=== PATIENT | male | born 2000 | race African-American/Black ===

== ENCOUNTER 2024-04-28 15:50 | Emergency (ER) | payer BC, SELFPAY ==
--- NOTE | 2024-04-28 15:59 | ED.GENADULT ---
HPI - General Adult General Chief complaint: Extremity Injury, Lower Stated complaint: ankle swelling Time Seen by Provider: 04/28/24 15:59 Source: patient Mode of arrival: ambulatory Limitations: no limitations History of Present Illness HPI narrative: 24-year-old male patient presents to [facility] with complaints of bilateral ankle edema for the last 2-3 days. Patient states he has had no injury. Patient states he has been trying to elevate the lower extremities as well as icing them. Patient is able to ambulate without difficulty. Patient denies any chest pain or shortness of breath at this time. Related Data Home Medications ?Medication ?Instructions ?Recorded ?Confirmed ?Last Taken ?Type atomoxetine 18 mg capsule mg PO 04/28/24 Unknown History buprenorphine 300 mg/1.5 mL mg subcut 04/28/24 Unknown History solution,exten.rel.subcutaneous syringe (Sublocade) buspirone 30 mg tablet mg 04/28/24 Unknown History fluoxetine 20 mg capsule mg 04/28/24 Unknown History hydroxyzine HCl 50 mg tablet mg 04/28/24 Unknown History olanzapine 5 mg tablet mg 04/28/24 Unknown History omeprazole 40 mg capsule,delayed mg 04/28/24 Unknown History release ondansetron HCl 4 mg tablet mg 04/28/24 Unknown History propranolol 10 mg tablet mg 04/28/24 Unknown History Allergies Allergy/AdvReac Type Severity Reaction Status Date / Time No Known Allergies Allergy Verified 04/28/24 16:31 Review of Systems Review of Systems: CONSTITUTIONAL: Denies fever, chills, or sweats. EYES: Denies visual changes, redness, or discharge. ENT: Denies rhinorrhea, congestion, sore throat, or otalgia. CARDIOVASCULAR: Denies chest pain, palpitations, or edema. RESPIRATORY: Denies cough or dyspnea. GASTROINTESTINAL: Denies abdominal pain, nausea, vomiting, or diarrhea. GENITOURINARY: Denies dysuria or hematuria. SKIN: Denies rash or itching. MUSCULOSKELETAL: Denies back pain, joint pain, or myalgia. Positive bilateral ankle and foot edema NEUROLOGIC: Denies headache, numbness, or weakness. PSYCHIATRIC: Denies anxiety or depression. [facility] Past Medical History Medical History History of psychiatric care Comments At the time of my signature I agree with nursing past medical history, surgical, social, and family history. There is no relevant family history pertinent to the presenting complaint. Exam Narrative: GENERAL: Well-appearing, well-nourished, and in no acute distress. HEAD: Normocephalic, atraumatic. EYES: PERRLA and EOMI. ENT: Nares clear, no rhinorrhea or epistaxis. Mucous membranes moist. NECK: Supple. No lymphadenopathy CHEST: Clear to auscultation. No respiratory distress. HEART: Regular rate and rhythm. No murmur heard. Normal peripheral pulses. ABDOMEN: Soft, nontender, nondistended, normal active bowel sounds. EXTREMITIES: Normal range of motion. patient has bilateral 2+ pitting edema noted. Pulses are 2+. There is edema noted that extends up to the knees. Patient does not appear to be overweight. SKIN: Warm, dry, no rash. NEURO: No focal deficits. Alert and oriented x3. Course Course Level of Care: Express Care Visit Reevaluation(s) Reevaluation #1: discussed with patient that his EKG does show some abnormalities and the fact that he is coming in today with vitals are to low heart rate, low BP pitting edema and shortness of breath I think he needs a full cardiac workup in the emergency department. Patient is aware plan of care and is in agreement at this time. Will call report over to [place] [facility]. Date: 04/28/24 Time: 17:03 Vital Signs Vital signs: Vital Signs Temperature 36.7 C 04/28/24 16:08 Pulse Rate 66 04/28/24 16:08 Respiratory Rate 18 04/28/24 16:08 Blood Pressure 110/50 L 04/28/24 16:08 Pulse Oximetry 98 04/28/24 16:08 Oxygen Delivery Room Air 04/28/24 16:08 Temperature 36.7 C 04/28/24 16:08 Pulse Rate 66 04/28/24 16:08 Respiratory Rate 18 04/28/24 16:08 Blood Pressure 110/50 L 04/28/24 16:08 Pulse Oximetry 98 04/28/24 16:08 Oxygen Delivery Room Air 04/28/24 16:08 Vital signs reviewed. Transfer Transfered to: [facility]: ALS Transfer rationale: Abnormal EKG with pitting edema and shortness of breath Accepting physician: SMITA Clemente Medical Decision Making MDM Narrative Medical decision making narrative: discussed with patient that this is considered dependent edema and most likely he has an increase sodium in his diet and he is retaining fluid or he could have an issue with his to the fact that his heart is not pumping normally And therefore not getting rid of the fluid. Discussed with patient that we will check an EKG today to assess his heart. Discussed with him he will need to either wrap his lower extremities with Edson wraps or get some compression socks input on daily. Highly recommend that he completely decrease the sodium in his diet and he needs to follow up with his primary doctor this week to assess for medication to decrease the extra fluid. Will reassess patient was EKG is completed. Differential Diagnosis Differential Diagnosis: Differential diagnosis: Foot fracture, crush injury, compartment syndrome, contusion, sprain, tendinitis,lisfranc sprain or fracture, avulsion fracture, grown toenail, diabetic ulcer. Vital Signs Vital Signs: Vital Signs Temperature 36.7 C 04/28/24 16:08 Pulse Rate 66 04/28/24 16:08 Respiratory Rate 18 04/28/24 16:08 Blood Pressure 110/50 L 04/28/24 16:08 Pulse Oximetry 98 04/28/24 16:08 Oxygen Delivery Room Air 04/28/24 16:08 Temperature 36.7 C 04/28/24 16:08 Pulse Rate 66 04/28/24 16:08 Respiratory Rate 18 04/28/24 16:08 Blood Pressure 110/50 L 04/28/24 16:08 Pulse Oximetry 98 04/28/24 16:08 Oxygen Delivery Room Air 04/28/24 16:08 ECG Data EKG #1: ECG completion date: 04/28/24 ECG completion time: 17:13 Prior ECG tracings: not available for review Interpretation: Sinus bradycardia. Early repolarization, ST-elevation with normally inflected T-wave. Borderline ECG. I confirm report. Vent rate: 56 LA interval: 199 QRS duration: 89 QT/ QTC: 408/400 P-R-T axis: 47, 69,43 Critical Care Time Critical Care Time Critical Care Time: No Discharge Plan Discharge Clinical Impression: Abnormal ECG, Dependent edema, Shortness of breath Patient Disposition: Acute Care Hospital Condition: Serious Instructions: Antibiotic Form Patient Language: Indonesian Prescriptions: No Action ondansetron HCl 4 mg tablet olanzapine 5 mg tablet hydroxyzine HCl 50 mg tablet omeprazole 40 mg capsule,delayed release(DR/EC) propranolol 10 mg tablet buspirone 30 mg tablet fluoxetine 20 mg capsule atomoxetine 18 mg capsule PO Sublocade 300 mg/1.5 mL solution, extended rel syringe SUBCUT Follow-up/Referrals: Joseph,Tawanda Crane APRN [Primary Care Provider] - Time of Disposition: 17:03
[2024-04-28 16:08] VITALS: BP 110/50; PULSE 66; RESP 18; TEMP 36.7; O2SAT 98
[2024-04-28 17:32] LABS: Glucose Point of Care 85 mg/dl (65-105)
== END 2024-04-28 17:10 | disposition short-term general hospital (02) ==
PROVIDERS: Emergency Provider Nurse Practitioner Family; PCP Nurse Practitioner
DX: R94.31 Abnormal electrocardiogram [ECG] [EKG] (principal); R60.9 Edema, unspecified; R06.02 Shortness of breath
CPT/HCPCS: 82948; 93005; 99215; G0463

== ENCOUNTER 2024-04-28 17:33 | Observation (INO) | payer BC, SELFPAY ==
[2024-04-28] VITALS (17 sets, daily range): BP systolic 95–133; BP diastolic 48–78; PULSE 41–71; RESP 8–18; TEMP 36.7; O2SAT 95–100
[2024-04-28 18:10] LABS: Basophils Percent Auto 0.2 % (0.2-1.2); Eosinophils Absolute Auto 0.2 K/mm3 (0-0.3); Eosinophils Percent Auto 2.7 % (0-4.4); Hematocrit 36.1 % (42.0-52.0); Hemoglobin 11.9 g/dL (14.0-18.0); Immature Granulocyte Absolute 0.01 K/mm3 (0.00-0.031); Immature Granulocyte Percent A 0.2 % (0-0.5); Lymphocytes Absolute Auto 1.34 K/mm3 (0.9-3.2); Lymphocytes Percent Auto 22.8 % (18.3-44.2); Mean Corpuscular Hemoglobin 32.8 pg (26-34); Mean Corpuscular Volume 99.4 fl (80-100); Mean Platelet Volume 12.1 fl (7.4-10.4); Monocytes Absolute Auto 0.9 K/mm3 (0.1-0.6); Neutrophils Absolute Auto 3.5 K/mm3 (1.3-6.7); Neutrophils Percent Auto 59.1 % (45.5-73.1); Platelet Count Result 187 k/mm3 (150-375); Red Blood Count 3.63 M/mm3 (4.6-6.20); Red Cell Distribution Width 12.5 % (11.5-14.5); White Blood Count 5.9 K/mm3 (4.5-10.0)
--- NOTE | 2024-04-28 18:11 | ED.EXTPRO ---
HPI - Extremity Problem General Chief complaint: Extremity Problem,Nontraumatic Stated complaint: BLE edema x days Time Seen by Provider: 04/28/24 17:45 Source: patient Mode of arrival: ambulatory Limitations: no limitations History of Present Illness HPI Narrative: This is a 24 year old male that presents to the ER for lower extremity edema. Ongoing over the last couple of days. Reports associated dyspnea. Reports some intermittent chest pains. He was sent to the ER from urgent care for further evaluation. Related Data Home Medications ?Medication ?Instructions ?Recorded ?Confirmed ?Last Taken ?Type atomoxetine 18 mg capsule mg PO 04/28/24 Unknown History buprenorphine 300 mg/1.5 mL mg subcut 04/28/24 Unknown History solution,exten.rel.subcutaneous syringe (Sublocade) buspirone 30 mg tablet mg 04/28/24 Unknown History fluoxetine 20 mg capsule mg 04/28/24 Unknown History hydroxyzine HCl 50 mg tablet mg 04/28/24 Unknown History olanzapine 5 mg tablet mg 04/28/24 Unknown History omeprazole 40 mg capsule,delayed mg 04/28/24 Unknown History release ondansetron HCl 4 mg tablet mg 04/28/24 Unknown History propranolol 10 mg tablet mg 04/28/24 Unknown History Allergies Allergy/AdvReac Type Severity Reaction Status Date / Time No Known Allergies Allergy Verified 04/28/24 18:01 Review of Systems Review of Systems: CONSTITUTIONAL: Denies fever CARDIOVASCULAR: Reports chest pain, and edema. RESPIRATORY: Reports dyspnea. All systems reviewed & are unremarkable except as noted in HPI and below PMFSH Past Medical History Medical History History of psychiatric care Exam Narrative: GENERAL: Well-appearing, well-nourished, and in no acute distress. HEAD: Normocephalic, atraumatic. EYES: PERRLA and EOMI. ENT: Nares clear, no rhinorrhea or epistaxis. Mucous membranes moist. Oropharynx without tonsillar hypertrophy exudate or other lesions. Bilateral TMs pearly staples non-bulging NECK: Supple. No adenopathy or masses. No carotid bruits or JVD CHEST: Clear to auscultation. No respiratory distress. No wheezes rales or rhonchi HEART: Regular rate and rhythm. No murmur heard. Normal peripheral pulses. ABDOMEN: Soft, nontender, nondistended, normal active bowel sounds. EXTREMITIES: Normal range of motion. Non pitting edema to the bilateral lower extremities SKIN: Warm, dry, no rash. NEURO: No focal deficits. Alert and oriented x3. PSYCH: Normal mood and affect Course Course Emergency Course: Patient updated on his workup and recommendation for admission. Consultations Consultation #1: Spoke with hospitalist about patient and workup who accepts admission Date: 04/29/24 Vital Signs Vital signs: Vital Signs Temperature 98.0 F 04/28/24 17:56 Pulse Rate 48 L 04/28/24 17:56 Respiratory Rate 16 04/28/24 17:56 Blood Pressure 111/59 L 04/28/24 17:56 Pulse Oximetry 97 04/28/24 17:56 Oxygen Delivery Room Air 04/28/24 17:56 Temperature 98.0 F 04/28/24 17:56 Pulse Rate 59 L 04/28/24 23:23 Respiratory Rate 14 04/28/24 23:23 Blood Pressure 133/58 L 04/28/24 23:23 Pulse Oximetry 98 04/28/24 23:23 Oxygen Delivery Room Air 04/28/24 17:56 MDM - Extremity (Nontraumatic) MDM Narrative Medical decision making narrative: Patient presents to the emergency department for lower extremity edema, shortness of breath. Patient was quite bradycardic upon arrival with heart rate in the 40s and dipping into the 30s. EKG showing sinus Olvin. He was recently started on propranolol. He was given glucagon and calcium with some improvement. Heart rate more steadily in the 50s. CBC shows normocytic anemia hemoglobin 11.9. Metabolic panel without concerning findings. BNP is 660. Baseline troponin is negative. Chest x-ray without acute cardiopulmonary abnormality. D-dimer is not elevated. Influenza, RSV, COVID screens are negative. TSH is normal. Patient updated on his workup and recommendation for admission. Spoke with hospitalist about patient and workup who accepts admission Differential Diagnosis Differential diagnosis: Likely lower extremity edema and other (CHF, beta filomena toxicity, nephrotic syndrome, DVT, PE) Lab Data Attestation: I reviewed the patient's lab results. 04/28/24 18:03 04/28/24 18:03 Labs: Lab Results 04/28/24 04/28/24 04/28/24 Range/Units 18:03 18:03 18:15 WBC 5.9 (4.5-10.0) K/mm3 RBC 3.63 L (4.6-6.20) M/mm3 Hgb 11.9 L (14.0-18.0) g/dL Hct 36.1 L (42.0-52.0) % MCV 99.4 (80-100) fl MCH 32.8 (26-34) pg MCHC 33.0 (32-36) g/dl RDW 12.5 (11.5-14.5) % Plt Count 187 (150-375) k/mm3 MPV 12.1 H (7.4-10.4) fl Immature Gran % (Auto) 0.2 (0-0.5) % Neut % (Auto) 59.1 (45.5-73.1) % Lymph % (Auto) 22.8 (18.3-44.2) % Rankin % (Auto) 15.0 H (2.6-8.5) % Eos % (Auto) 2.7 (0-4.4) % Baso % (Auto) 0.2 (0.2-1.2) % Lymph # (Auto) 1.34 (0.9-3.2) K/mm3 Rankin # (Auto) 0.9 H (0.1-0.6) K/mm3 Eos # (Auto) 0.2 (0-0.3) K/mm3 Baso # (Auto) 0.0 (0.0-0.1) K/mm3 Abs Immat Gran (auto) 0.01 (0.00-0.031) K/mm3 Absolute Neuts (auto) 3.5 (1.3-6.7) K/mm3 Absolute Nucleated RBC 0.000 (0.0-0.012) K/mm3 Nucleated RBC % 0.0 (0.0-0.2) % PT 14.1 (11.1-14.7) Seconds INR 1.0 APTT 32.3 (22.3-36.8) Seconds D-Dimer < 0.27 Cancelled (<0.48) ug/mL Sodium 138 (137-145) mmol/L Potassium 4.2 (3.4-5.0) mmol/L Chloride 105 (98-107) mmol/L Carbon Dioxide 29 (22-30) mmol/L Anion Gap 4 (4-12) mmol/L BUN 13 (9-20) mg/dL Creatinine 0.70 (0.7-1.3) mg/dL Estim Creat Clear Calc 200 ml/min Estimated GFR > 60 (59 - ) Glucose 82 (65-110) mg/dL POC Capillary Glucose (65-105) mg/dl Calcium 8.5 (8.4-10.2) mg/dL Total Bilirubin 0.8 (0.2-1.3) mg/dL AST 22 (17-59) U/L ALT 18 (6-50) U/L Alkaline Phosphatase 81 (38-126) U/L Troponin I < 0.012 (0.000-0.034) ng/mL NT-Pro-B Natriuret Pep 660 H (19.9-100) pg/mL Total Protein 7.0 (6.3-8.2) g/dL Albumin 3.7 (3.5-5.1) g/dL TSH (Reflex) 0.499 (0.465-4.68) uIU/mL Urine Opiates Screen Negative (Negative) Urine Methadone Screen Negative (Negative) Ur Barbiturates Screen Negative (Negative) Ur Phencyclidine Scrn Negative (Negative) Ur Amphetamine Screen Negative (Negative) U Benzodiazepines Scrn Negative (Negative) Urine Cocaine Screen Negative (Negative) U Cannabinoids Screen Positive A (Negative) Influenza A (RT-PCR) Negative (Negative) Influenza B (RT-PCR) Negative (Negative) RSV (RT-PCR) Negative (Negative) SARS-CoV-2 RNA (RT-PCR) Negative (Negative) 04/28/24 Range/Units 20:20 WBC (4.5-10.0) K/mm3 RBC (4.6-6.20) M/mm3 Hgb (14.0-18.0) g/dL Hct (42.0-52.0) % MCV (80-100) fl MCH (26-34) pg MCHC (32-36) g/dl RDW (11.5-14.5) % Plt Count (150-375) k/mm3 MPV (7.4-10.4) fl Immature Gran % (Auto) (0-0.5) % Neut % (Auto) (45.5-73.1) % Lymph % (Auto) (18.3-44.2) % Rankin % (Auto) (2.6-8.5) % Eos % (Auto) (0-4.4) % Baso % (Auto) (0.2-1.2) % Lymph # (Auto) (0.9-3.2) K/mm3 Rankin # (Auto) (0.1-0.6) K/mm3 Eos # (Auto) (0-0.3) K/mm3 Baso # (Auto) (0.0-0.1) K/mm3 Abs Immat Gran (auto) (0.00-0.031) K/mm3 Absolute Neuts (auto) (1.3-6.7) K/mm3 Absolute Nucleated RBC (0.0-0.012) K/mm3 Nucleated RBC % (0.0-0.2) % PT (11.1-14.7) Seconds INR APTT (22.3-36.8) Seconds D-Dimer (<0.48) ug/mL Sodium (137-145) mmol/L Potassium (3.4-5.0) mmol/L Chloride (98-107) mmol/L Carbon Dioxide (22-30) mmol/L Anion Gap (4-12) mmol/L BUN (9-20) mg/dL Creatinine (0.7-1.3) mg/dL Estim Creat Clear Calc ml/min Estimated GFR (59 - ) Glucose (65-110) mg/dL POC Capillary Glucose 72 (65-105) mg/dl Calcium (8.4-10.2) mg/dL Total Bilirubin (0.2-1.3) mg/dL AST (17-59) U/L ALT (6-50) U/L Alkaline Phosphatase (38-126) U/L Troponin I (0.000-0.034) ng/mL NT-Pro-B Natriuret Pep (19.9-100) pg/mL Total Protein (6.3-8.2) g/dL Albumin (3.5-5.1) g/dL TSH (Reflex) (0.465-4.68) uIU/mL Urine Opiates Screen (Negative) Urine Methadone Screen (Negative) Ur Barbiturates Screen (Negative) Ur Phencyclidine Scrn (Negative) Ur Amphetamine Screen (Negative) U Benzodiazepines Scrn (Negative) Urine Cocaine Screen (Negative) U Cannabinoids Screen (Negative) Influenza A (RT-PCR) (Negative) Influenza B (RT-PCR) (Negative) RSV (RT-PCR) (Negative) SARS-CoV-2 RNA (RT-PCR) (Negative) Imaging Data Radiologist's impression: ITS Impressions Chest X-Ray 04/28/24 19:39 IMPRESSION: No acute cardiopulmonary pathology. Critical Care Time Critical Care Time Critical Care Time: No Discharge Plan Discharge Clinical Impression: Bradycardia, Edema of lower extremity Patient Disposition: Still a Patient Condition: Stable
[2024-04-28 18:20] LABS: Alanine Aminotransferase 18 U/L (6-50); Albumin Level 3.7 g/dL (3.5-5.1); Alkaline Phosphatase 81 U/L (38-126); Anion Gap 4 mmol/L (4-12); Aspartate Amino Transferase 22 U/L (17-59); Bilirubin,Total 0.8 mg/dL (0.2-1.3); Blood Urea Nitrogen 13 mg/dL (9-20); Calcium 8.5 mg/dL (8.4-10.2); Carbon Dioxide 29 mmol/L (22-30); Chloride 105 mmol/L (98-107); Estimated CRCL calculation 200 ml/min; Estimated Glomerular Filt Rate > 60; Glucose 82 mg/dL (65-110); Potassium 4.2 mmol/L (3.4-5.0); Sodium 138 mmol/L (137-145)
[2024-04-28 18:22] LABS: Prothrombin Time 14.1 Seconds (11.1-14.7)
[2024-04-28 18:23] LABS: Partial Thromboplastin Time 32.3 Seconds (22.3-36.8)
[2024-04-28 18:25] LABS: Amphetamine Screen Urine Negative (Negative); Barbiturate Screen Urine Negative (Negative); Benzodiazepines Screen Urine Negative (Negative); Cannabinoid Screen Urine Positive (Negative); Cocaine Screen Urine Negative (Negative); Methadone Screen Urine Negative (Negative); Opiate Screen Urine Negative (Negative); Phencyclidine Screen Urine Negative (Negative)
[2024-04-28 18:28] LABS: NT Pro B Type Natriuretic Pept 660 pg/mL (19.9-100)
[2024-04-28 18:38] LABS: D Dimer < 0.27 ug/mL (<0.48)
[2024-04-28 18:48] LABS: Troponin I < 0.012 ng/mL (0.000-0.034)
[2024-04-28 18:55] LABS: Influenza A QL RT-PCR Negative (Negative); Influenza B QL RT-PCR Negative (Negative); RSV RNA, RT-PCR Negative (Negative); SARS-CoV-2 RNA PCR Negative (Negative)
[2024-04-28] MEDS: GLUCAGON FOR INJ 1 MG VIAL 2 MG IV PUSH ×2 (18:57→20:21)
[2024-04-28] MEDS: SODIUM CHLORIDE 0.9% IV 500 ML 999 ML IV CONT (18:58)
[2024-04-28] MEDS: CALCIUM GLUC 1,000 MG/NS 50 ML 1,000 MG/50 ML BAG 100 MG IVPB (18:58)
[2024-04-28 18:59] LABS: Thyroid Stimulating Hormone Reflex 0.499 uIU/mL (0.465-4.68)
[2024-04-28 20:23] LABS: Glucose Point of Care 72 mg/dl (65-105)
[2024-04-28] MEDS: ONDANSETRON INJ 4 MG/2 ML VIAL IV PUSH (20:30)
--- NOTE | 2024-04-28 22:12 | PM.IMHP ---
H&P: HPI History of Present Illness Date/Time: 04/28/24 22:12 Chief Complaint: Lower leg swelling for 3 days Narrative: 24-year-old male with a past medical history of anxiety and depression who presented to the ER with 3 days of lower extremity swelling. The patient [facility] for his leg swelling but was found to be bradycardic. He was directed to come to the ER for evaluation. He reports that his symptoms started shortly after being placed on propanolol. He reports he has not felt good since he was started on the propanolol for his anxiety. He became more concerned when he began having some mild swelling of his ankles and went to urgent care. At urgent care he was noted to have heart rates in the 30s and was sent to the ER for evaluation. In the ER he received calcium gluconate, Benadryl, glucagon x2 and Reglan. He had improvement in his bradycardia with heart rates ranging between the 40s and 70s. He reports that since he has been started on the propranolol like he has been having intermittent shortness of breath and lightheadedness is worse with activity. He denies any chest pain or palpitations. He did not realize that his heart rate was low until he came in for evaluation. Patient reports that his nausea vomiting has been ongoing and intermittent for 3 years. His nausea and GI symptoms are unchanged from his baseline. He denies any hematemesis or coffee-ground emesis. He has been having normal bowel movements. He smokes marijuana frequently and states that marijuana is the only thing that helps with his nausea and vomiting. Review of Systems Review of Systems: 12 systems were reviewed with pertinent positives and negatives per HPI. Except as documented in the HPI, all other systems were reviewed and are negative. [facility] Past Medical History Medical History PTSD (post-traumatic stress disorder) Treated since he was 14 Anxiety and depression Surgical History Surgical History No history of previous surgery Family History Family History Mother Diabetes mellitus Social History Social History (Updated 04/30/24 @ 03:10 by Britni Alva DO) Social History: The patient lives with his girlfriend and 5-year-old children. He has used E cigarettes since he was 14 years old. He occasionally drinks in moderation (about once per month). He smokes marijuana frequently. He denies any other illicit substance use. He is currently unemployed. Code status: Full code Smoking status: Current every day smoker Tobacco type: e-cigarettes/vaping Substance use: current Substance use type: marijuana Do You Feel Safe in your Home?: Yes Lack of Transportation: No Lack of Food: Sometimes True Current Housing: I Have Housing Concerned About Future Housing: No Difficulty Paying Gas/Electric Bills: No Difficulty Paying for Meds: No Currently Unemployed: YES Education: Grade School Difficulty w/ Childcare or Family Care: No Spiritual care concerns: No Meds Home Medications and Allergies Home Medications ?Medication ?Instructions ?Recorded ?Confirmed ?Type atomoxetine 18 mg capsule 18 mg PO DAILY 04/28/24 04/29/24 History buprenorphine 300 mg/1.5 mL 300 mg subcut MONTHLY 04/28/24 04/29/24 History solution,exten.rel.subcutaneous syringe (Sublocade) buspirone 30 mg tablet 30 mg PO TID 04/28/24 04/29/24 History fluoxetine 20 mg capsule 60 mg PO DAILY 04/28/24 04/29/24 History hydroxyzine HCl 50 mg tablet 100 mg PO HS 04/28/24 04/29/24 History olanzapine 5 mg tablet 7.5 mg PO HS 04/28/24 04/29/24 History omeprazole 40 mg capsule,delayed 40 mg PO DAILY 04/28/24 04/29/24 History release ondansetron HCl 4 mg tablet 4 mg PO DAILY 04/28/24 04/29/24 History propranolol 10 mg tablet 10 mg PO Q12H 04/28/24 04/29/24 History ibuprofen 200 mg tablet (Motrin IB) 200 mg PO Q6H PRN pain 04/29/24 04/29/24 History Allergies Allergy/AdvReac Type Severity Reaction Status Date / Time No Known Allergies Allergy Verified 04/28/24 18:01 Vital Signs Vital Signs - 24 hr 04/28/24 17:56 04/28/24 19:02 04/28/24 19:06 Temperature 98.0 F Pulse Rate 48 L 56 L 71 Respiratory Rate 16 12 18 Blood Pressure 111/59 L 105/61 105/71 Pulse Oximetry 97 100 Oxygen Delivery Room Air 03/02/25 19:47 04/28/24 20:32 04/28/24 20:45 Temperature Pulse Rate 41 L 56 L 54 L Respiratory Rate 12 15 14 Blood Pressure 119/64 Pulse Oximetry 97 Oxygen Delivery 04/28/24 20:46 Temperature Pulse Rate 60 Respiratory Rate 16 Blood Pressure 123/78 Pulse Oximetry 96 Oxygen Delivery Exam Narrative: Weight 130.3 kg BMI 37.9 Const: Other: No acute distress, obese, appears older than stated age HENMT: Other: Mucous membranes are moist, no oral pharyngeal erythema Eyes: Other: Pupils are equal and reactive, no scleral icterus, no conjunctival pallor Neck: Other: No JVD, no lymphadenopathy, no thyromegaly Resp: Other: Clear to auscultation bilaterally, no increased work of breathing Cardio: Other: 2+ bilateral radial pedal pulses, sinus bradycardia, no JVD, no murmur GI: Other: Soft, nontender, nondistended, positive bowel sounds Skin: Other: No jaundice, no pallor, multiple tattoos including a tattoo above and below the right eye immature tattoos noted on the arms and across the chest as well Neuro: Other: Patient was difficult to arouse from sleep but once awake was alert oriented x4, speech is clear but slow, no facial asymmetry, no localizing neurologic deficits noted during the course of conversation Extrem: Other: Trace edema to ankles, 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 Psych: Other: Flat affect, cooperative, avoids eye contact H&P: Results Labs Labs: Laboratory Tests 04/28/24 18:03 04/28/24 18:03 04/28/24 04/28/24 04/28/24 18:03 18:03 18:15 WBC 5.9 RBC 3.63 L Hgb 11.9 L Hct 36.1 L MCV 99.4 MCH 32.8 MCHC 33.0 RDW 12.5 Plt Count 187 MPV 12.1 H Immature Gran % (Auto) 0.2 Neut % (Auto) 59.1 Lymph % (Auto) 22.8 [place] % (Auto) 15.0 H Eos % (Auto) 2.7 Baso % (Auto) 0.2 Lymph # (Auto) 1.34 [place] # (Auto) 0.9 H Eos # (Auto) 0.2 Baso # (Auto) 0.0 Abs Immat Gran (auto) 0.01 Absolute Neuts (auto) 3.5 Absolute Nucleated RBC 0.000 Nucleated RBC % 0.0 PT 14.1 INR 1.0 APTT 32.3 D-Dimer < 0.27 Cancelled Sodium 138 Potassium 4.2 Chloride 105 Carbon Dioxide 29 Anion Gap 4 BUN 13 Creatinine 0.70 Estim Creat Clear Calc 200 Estimated GFR > 60 Glucose 82 POC Capillary Glucose Calcium 8.5 Total Bilirubin 0.8 AST 22 ALT 18 Alkaline Phosphatase 81 Troponin I < 0.012 NT-Pro-B Natriuret Pep 660 H Total Protein 7.0 Albumin 3.7 TSH (Reflex) 0.499 Urine Opiates Screen Negative Urine Methadone Screen Negative Ur Barbiturates Screen Negative Ur Phencyclidine Scrn Negative Ur Amphetamine Screen Negative U Benzodiazepines Scrn Negative Urine Cocaine Screen Negative U Cannabinoids Screen Positive A Influenza A (RT-PCR) Negative Influenza B (RT-PCR) Negative RSV (RT-PCR) Negative SARS-CoV-2 RNA (RT-PCR) Negative 04/28/24 20:20 WBC RBC Hgb Hct MCV MCH MCHC RDW Plt Count MPV Immature Gran % (Auto) Neut % (Auto) Lymph % (Auto) [place] % (Auto) Eos % (Auto) Baso % (Auto) Lymph # (Auto) [place] # (Auto) Eos # (Auto) Baso # (Auto) Abs Immat Gran (auto) Absolute Neuts (auto) Absolute Nucleated RBC Nucleated RBC % PT INR APTT D-Dimer Sodium Potassium Chloride Carbon Dioxide Anion Gap BUN Creatinine Estim Creat Clear Calc Estimated GFR Glucose POC Capillary Glucose 72 Calcium Total Bilirubin AST ALT Alkaline Phosphatase Troponin I NT-Pro-B Natriuret Pep Total Protein Albumin TSH (Reflex) Urine Opiates Screen Urine Methadone Screen Ur Barbiturates Screen Ur Phencyclidine Scrn Ur Amphetamine Screen U Benzodiazepines Scrn Urine Cocaine Screen U Cannabinoids Screen Influenza A (RT-PCR) Influenza B (RT-PCR) RSV (RT-PCR) SARS-CoV-2 RNA (RT-PCR) Impressions Chest X-Ray 04/28/24 19:39 IMPRESSION: No acute cardiopulmonary pathology. EKG: Personally reviewed Sinus bradycardia with sinus arrhythmia rate of 43 QTC 378. Cardiology interpretation pending All imaging and EKGs personally reviewed and interpreted. And unless stated otherwise agree with radiologic and cardiology interpretation. Assessment and Plan Assessment and plan (1) Bradycardia: Code(s): R00.1 - Bradycardia, unspecified Status: Acute (2) Edema of lower extremity: Code(s): R60.0 - Localized edema Status: Acute Plan Patient has bradycardia secondary to medication a affect. This is likely contributing to the patient's symptoms of lightheadedness and lower extremity edema (which is minimal). UA was obtained to rule out any component of possible proteinuria that could contribute to third-spacing of fluids. Bradycardia improved after glucagon and calcium gluconate. Patient's heart rates are still in the 50s but he has not had any drop in his heart rate back down into the 30s since treatment. Will hold propranolol. Will check echocardiogram magnetic observer further evaluate patient's cardiac structure and function will out heart failure. Will monitor patient on telemetry. The patient is unsure of what his home medications are and is med rec has not yet been reconciled at the time of my documentation. I did discuss with the patient the likelihood of his chronic nausea and or vomiting is likely at least exacerbated by his marijuana use. The patient of intermittently disagrees with this and is not interested in quitting smoking marijuana. The importance of stopping vape being was also discussed with the patient which she is not interested in entertaining. Will place patient on Protonix p.o. daily and Phenergan as needed for recurrent nausea. Patient has been admitted as observation status. Quality VTE Prophylaxis VTE prophylaxis: pharmacologic ordered (Lovenox 40 mg subQ daily.) Hospitalist [facility] Advance Care Plan I have confirmed that the patient's Advanced Care Plan is present, code status is documented, or surrogate decision maker is listed in patient medical record.: Yes Medication Reconciliation I have utilized all available resources to obtain, update and review the patients current medications (includes all prescriptions, OTC, herbals, cannabis, and nutritional supplements).: Yes
[2024-04-28] MEDS: diphenhydrAMINE HCl INJ 50 MG/ML VIAL 25 MG IV PUSH (22:49)
[2024-04-28] MEDS: SODIUM CHLORIDE 0.9% IV 50 ML 999 ML (22:50)
[2024-04-28] MEDS: METOCLOPRAMIDE HCL INJ 10 MG/2 ML VIAL IV PUSH (22:50)
[2024-04-28 23:14] LABS: Troponin I < 0.012 ng/mL (0.000-0.034)
[2024-04-28 23:18] LABS: Strep Group A RT-PCR NOT DETECTED (Negative)
[2024-04-29] VITALS (22 sets, daily range): BP systolic 110–148; BP diastolic 49–82; PULSE 47–70; RESP 7–19; TEMP 36.3–37.1; O2SAT 97–100; BMI 37.9
[2024-04-29 00:09] LABS: Monoscreen Negative (Negative); Negative Monotest Control Negative (Negative); Positive Monotest Control Positive (Positive)
[2024-04-29 01:42] LABS: Add Urine Microscopic? NO; Appearance Urine Clear (Clear); Bilirubin Urine Negative (Negative); Blood Urine Negative (Negative); Color Urine Yellow (Yellow); Glucose Urine UA Negative (Negative); Ketones Urine Negative (Negative); Leukocyte Esterase Ur Negative LEU/UL (Negative); Nitrate Urine Negative (Negative); Protein Urine Negative (Negative); Specific Grav Ur 1.013 (1.001-1.035); pH Urine 6.5 (5.0-9.0)
--- NOTE | 2024-04-29 07:22 | PC.NURSE ---
Patient resting at this time with lights off. patient states he is feeling a little better , but continues to be lethargic and want to sleep. Lights dimmed and patient given call light.
--- NOTE | 2024-04-29 08:25 | PC.NURSE ---
Patient continues to roll onto his stomach and sleep removing cardiac leads. Patient educated on importance of making sure he stays on the monitor due to his heart rate. Leads placed back on patient.
[2024-04-29] MEDS: ENOXAPARIN 40 MG/0.4 ML SYRINGE SUB-Q (09:31)
[2024-04-29] MEDS: PANTOPRAZOLE 40 MG TABLET PO ×2 (09:32→20:23)
--- NOTE | 2024-04-29 10:02 | PC.NURSE ---
Patient sitting up eating at this time.
--- NOTE | 2024-04-29 10:25 | PM.CNCAR ---
Assessment and Plan Assessment and plan (1) Bradycardia: Code(s): R00.1 - Bradycardia, unspecified Status: Acute Assessment and Plan: He has sinus bradycardia. Some mild hypotension is documented last night but currently his blood pressure is stable. He does not have any symptoms concerning for symptomatic bradycardia. Would hold propranolol for now. Echo is pending. (2) Edema of lower extremity: Code(s): R60.0 - Localized edema Status: Acute Assessment and Plan: I do not appreciate any significant edema on exam. His chest xray is not suggestive of CHF. Will review echocardiogram when available. History of Present Illness History of Present Illness Consult date/time: 04/29/24 10:25 Requesting physician: Coretta Jang PA-C Consult reason: Other (bradycardia, lower extremity edema) Reason For Visit: Lower extremity edema, Bradycardia Narrative: Luis Alfredo Mendes is a 24 year old male with post traumatic stress disorder, depression, anxiety, and ADHD. He was sent to the emergency department from urgent care because of lower extremity edema. Cardiology is consulted for edema and bradycardia. Patient states he began to notice bilateral ankle and foot swelling 4 days ago. He also reports noticing shortness of breath for several days. He also reports an episode of sharp chest pain that lasted 10-15 minutes which happened about 2 weeks ago when he started propranolol. He has felt well otherwise and doesn't have any current complaints aside from feeling fatigued. Review of Systems Review of Systems: All systems reviewed & are unremarkable except as noted in HPI and below PMFSH Past Medical History Medical History PTSD (post-traumatic stress disorder) Treated since he was 14 Anxiety and depression Surgical History Surgical History No history of previous surgery Meds Home Medications and Allergies Home Medications ?Medication ?Instructions ?Recorded ?Confirmed ?Type atomoxetine 18 mg capsule mg PO 04/28/24 History buprenorphine 300 mg/1.5 mL mg subcut 04/28/24 History solution,exten.rel.subcutaneous syringe (Sublocade) buspirone 30 mg tablet mg 04/28/24 History fluoxetine 20 mg capsule mg 04/28/24 History hydroxyzine HCl 50 mg tablet mg 04/28/24 History olanzapine 5 mg tablet mg 04/28/24 History omeprazole 40 mg capsule,delayed mg 04/28/24 History release ondansetron HCl 4 mg tablet mg 04/28/24 History propranolol 10 mg tablet mg 04/28/24 History Allergies Allergy/AdvReac Type Severity Reaction Status Date / Time No Known Allergies Allergy Verified 04/28/24 18:01 Vital Signs Vital Signs - 24 hr 04/28/24 17:56 04/28/24 19:02 04/28/24 19:06 Temperature 36.7 C Pulse Rate 48 L 56 L 71 Respiratory Rate 16 12 18 Blood Pressure 111/59 L 105/61 105/71 Pulse Oximetry 97 100 Oxygen Delivery Room Air 04/28/24 19:47 04/28/24 20:32 04/28/24 20:45 Temperature Pulse Rate 41 L 56 L 54 L Respiratory Rate 12 15 14 Blood Pressure 119/64 Pulse Oximetry 97 Oxygen Delivery 04/28/24 20:46 04/28/24 20:47 04/28/24 21:00 Temperature Pulse Rate 60 52 L 51 L Respiratory Rate 16 11 L 10 L Blood Pressure 123/78 Pulse Oximetry 96 99 97 Oxygen Delivery 04/28/24 21:27 04/28/24 21:30 04/28/24 21:31 Temperature Pulse Rate 55 L 63 56 L Respiratory Rate 9 L 15 8 L Blood Pressure 99/48 L Pulse Oximetry 95 Oxygen Delivery 04/28/24 21:37 04/28/24 21:45 04/28/24 22:00 Temperature Pulse Rate 53 L 54 L 53 L Respiratory Rate 13 9 L 18 Blood Pressure 95/50 L Pulse Oximetry Oxygen Delivery 04/28/24 22:15 04/28/24 23:23 04/29/24 02:19 Temperature Pulse Rate 58 L 59 L 57 L Respiratory Rate 12 14 12 Blood Pressure 133/58 L 111/54 L Pulse Oximetry 98 98 Oxygen Delivery 04/29/24 02:47 04/29/24 04:54 04/29/24 05:15 Temperature Pulse Rate 54 L 48 L 67 Respiratory Rate 14 17 Blood Pressure 110/49 L Pulse Oximetry Oxygen Delivery 04/29/24 05:30 04/29/24 06:35 04/29/24 07:21 Temperature 36.6 C Pulse Rate 52 L 70 55 L Respiratory Rate 14 15 16 Blood Pressure 130/78 120/70 Pulse Oximetry 100 98 Oxygen Delivery Exam Const: General: comfortable, no acute distress and alert Orientation/consciousness: patient oriented x3 HENMT: Head: normal to inspection Eyes: General: appearance normal, both eyes and all related structures Pupils: Equal, round and reactive pupils present Neck: Neck: normal visual inspection, supple and no JVD Carotids: normal carotid upstroke Resp: Effort & Inspection: normal respiratory effort Auscultation: clear to auscultation bilaterally Cardio: Rate: regular rate Rhythm: regular rhythm Heart sounds: S1 normal heart sound present, S2 normal heart sound present and no murmurs GI: Auscultation: normal bowel sounds Skin: General skin exam: normal color Neuro: General: patient oriented x3 Cranial nerves: Yes Equal, round and reactive pupils present Extrem: General: normal to inspection Other: no pitting edema Psych: Appearance: grossly normal Mental Status: mental status grossly normal Results Labs and Meds 04/28/24 18:03 04/28/24 18:03 Lab results: Cardiac Enzymes 04/28/24 04/28/24 Range/Units 18:03 22:45 AST 22 (17-59) U/L Troponin I < 0.012 < 0.012 (0.000-0.034) ng/mL Coagulation 04/28/24 Range/Units 18:03 PT 14.1 (11.1-14.7) Seconds APTT 32.3 (22.3-36.8) Seconds CBC 04/28/24 Range/Units 18:03 WBC 5.9 (4.5-10.0) K/mm3 RBC 3.63 L (4.6-6.20) M/mm3 Hgb 11.9 L (14.0-18.0) g/dL Hct 36.1 L (42.0-52.0) % Plt Count 187 (150-375) k/mm3 Lymph # (Auto) 1.34 (0.9-3.2) K/mm3 [place] # (Auto) 0.9 H (0.1-0.6) K/mm3 Eos # (Auto) 0.2 (0-0.3) K/mm3 Baso # (Auto) 0.0 (0.0-0.1) K/mm3 Comprehensive Metabolic Panel 04/28/24 Range/Units 18:03 Sodium 138 (137-145) mmol/L Potassium 4.2 (3.4-5.0) mmol/L Chloride 105 (98-107) mmol/L Carbon Dioxide 29 (22-30) mmol/L BUN 13 (9-20) mg/dL Creatinine 0.70 (0.7-1.3) mg/dL Glucose 82 (65-110) mg/dL Calcium 8.5 (8.4-10.2) mg/dL AST 22 (17-59) U/L ALT 18 (6-50) U/L Alkaline Phosphatase 81 (38-126) U/L Total Protein 7.0 (6.3-8.2) g/dL Albumin 3.7 (3.5-5.1) g/dL Intake and Output 04/28/24 04/29/24 04/29/24 23:59 07:59 15:59 Intake Total 600 Balance 600 Intake: IV 600 Sodium Chloride 0.9% IV 50 ml @ 50 0 mls/hr .ROUTE .STK-MED ONE Rx#:[id number] Sodium Chloride 0.9% IV 500 ml 500 @ 999 mls/hr IV CONT .Q31M STA Rx#:[id number] Calcium Gluc 1,000 mg/Ns 50 ml 50 1,000 mg In 50 ml @ 100 mls/hr IVPB ONCE ONE Rx#:[id number]
--- NOTE | 2024-04-29 12:43 | PC.NURSE ---
Dietary was called for a heart healthy lunch tray that will be sent to room 301.
--- NOTE | 2024-04-29 13:47 | PM.IMPN ---
Progress Note: A&P Assessment and Plan (1) Bradycardia: Code(s): R00.1 - Bradycardia, unspecified Status: Acute (2) Edema of lower extremity: Code(s): R60.0 - Localized edema Status: Acute Plan Bradycardia Reviewed EKG Reviewed home medication Will hold all the psychiatric medications for now Reviewed electrolytes No evidence of ortho TSH normal Echo pending On tele Cardiology consulted Anxiety/Bipolar/Depression/PTSD/Anger issues Follows Psychiatry Holding all the psychiatric medications for now Subjective Date/time seen: 04/29/24 13:47 Interval history: Hold Olanzapine and proponolol until further instruction. Order anemia panel and ECHO. Patient reports as a childhood he had some cardiac issues but couldnt remember the details. He has been diagnosed anxiety, PTSD, Depression, Anger issues (reports he is taking propranolol for that), Bipolar. He has multiple psychiatry medications. He is being followed with Dr. Darren Delgado psychiatrist. He doesnt have a PCP for now. He is admitted in the setting of ankle swelling,low BP and HR. Review of Systems Review of Systems: 12 systems were reviewed with pertinent positives and negatives per HPI. Except as documented in the HPI, all other systems were reviewed and are negative. Exam Narrative: Weight 130.3 kg BMI 37.9 Objective Data Vital Signs Vital Signs: Vital Signs - 24 hr 04/28/24 17:56 04/28/24 19:02 04/28/24 19:06 Temperature 98.0 F Pulse Rate 48 L 56 L 71 Respiratory Rate 16 12 18 Blood Pressure 111/59 L 105/61 105/71 Pulse Oximetry 97 100 Oxygen Delivery Room Air 04/28/24 19:47 04/28/24 20:32 04/28/24 20:45 Temperature Pulse Rate 41 L 56 L 54 L Respiratory Rate 12 15 14 Blood Pressure 119/64 Pulse Oximetry 97 Oxygen Delivery 04/28/24 20:46 04/28/24 20:47 04/28/24 21:00 Temperature Pulse Rate 60 52 L 51 L Respiratory Rate 16 11 L 10 L Blood Pressure 123/78 Pulse Oximetry 96 99 97 Oxygen Delivery 04/28/24 21:27 04/28/24 21:30 04/28/24 21:31 Temperature Pulse Rate 55 L 63 56 L Respiratory Rate 9 L 15 8 L Blood Pressure 99/48 L Pulse Oximetry 95 Oxygen Delivery 04/28/24 21:37 04/28/24 21:45 04/28/24 22:00 Temperature Pulse Rate 53 L 54 L 53 L Respiratory Rate 13 9 L 18 Blood Pressure 95/50 L Pulse Oximetry Oxygen Delivery 04/28/24 22:15 04/28/24 23:23 04/29/24 02:19 Temperature Pulse Rate 58 L 59 L 57 L Respiratory Rate 12 14 12 Blood Pressure 133/58 L 111/54 L Pulse Oximetry 98 98 Oxygen Delivery 04/29/24 02:47 04/29/24 04:54 04/29/24 05:15 Temperature Pulse Rate 54 L 48 L 67 Respiratory Rate 14 17 Blood Pressure 110/49 L Pulse Oximetry Oxygen Delivery 04/29/24 05:30 04/29/24 06:35 04/29/24 07:21 Temperature 97.9 F Pulse Rate 52 L 70 55 L Respiratory Rate 14 15 16 Blood Pressure 130/78 120/70 Pulse Oximetry 100 98 Oxygen Delivery 04/29/24 12:49 Temperature Pulse Rate Respiratory Rate Blood Pressure 119/56 L Pulse Oximetry Oxygen Delivery Intake/Output Intake/Output: Intake & Output 04/26/24 04/27/24 04/28/24 04/29/24 23:59 23:59 23:59 23:59 Intake Total 600 Balance 600 Meds/Results Medications: Active Medications Generic Name Dose Route Start Last Admin Trade Name Freq PRN Reason Stop Dose Admin Enoxaparin Sodium 40 mg 04/29/24 09:00 04/29/24 09:31 Enoxaparin 40 Mg/0.4 Ml Syringe SUB-Q 40 mg DAILY PAMELA Administration Pantoprazole Sodium 40 mg 04/29/24 09:00 04/29/24 09:32 Pantoprazole 40 Mg Tablet PO 40 mg QAM PAMELA Administration Perflutren Lipid Microsphere 0 ml 04/28/24 22:13 Perflutren Lipid Microspheres 1.5 Ml Vial Diluted To 10 Ml Total Volume IV PUSH 05/01/24 22:14 ONCE PRN adequate visualization Protocol Promethazine HCl 25 mg 04/29/24 08:25 Promethazine Hcl 25 Mg/Ml Ampul IM Q4H PRN Nausea And Vomiting Radiology Results: ITS Impressions Chest X-Ray 04/28/24 19:39 IMPRESSION: No acute cardiopulmonary pathology. Labs Labs: Laboratory Results - last 24 hr 04/28/24 04/28/24 04/28/24 18:03 18:03 18:15 WBC 5.9 RBC 3.63 L Hgb 11.9 L Hct 36.1 L MCV 99.4 MCH 32.8 MCHC 33.0 RDW 12.5 Plt Count 187 MPV 12.1 H Immature Gran % (Auto) 0.2 Neut % (Auto) 59.1 Lymph % (Auto) 22.8 [place] % (Auto) 15.0 H Eos % (Auto) 2.7 Baso % (Auto) 0.2 Lymph # (Auto) 1.34 [place] # (Auto) 0.9 H Eos # (Auto) 0.2 Baso # (Auto) 0.0 Abs Immat Gran (auto) 0.01 Absolute Neuts (auto) 3.5 Absolute Nucleated RBC 0.000 Nucleated RBC % 0.0 PT 14.1 INR 1.0 APTT 32.3 D-Dimer < 0.27 Cancelled Sodium 138 Potassium 4.2 Chloride 105 Carbon Dioxide 29 Anion Gap 4 BUN 13 Creatinine 0.70 Estim Creat Clear Calc 200 Estimated GFR > 60 Glucose 82 POC Capillary Glucose Calcium 8.5 Total Bilirubin 0.8 AST 22 ALT 18 Alkaline Phosphatase 81 Troponin I < 0.012 NT-Pro-B Natriuret Pep 660 H Total Protein 7.0 Albumin 3.7 TSH (Reflex) 0.499 Urine Color Yellow Urine Appearance Clear Urine pH 6.5 Ur Specific [place] 1.013 Urine Protein Negative Urine Glucose (UA) Negative Urine Ketones Negative Ur Blood (Man) Negative Urine Nitrate Negative Urine Bilirubin Negative Urine Urobilinogen 1.0 Leukocyte Esterase Rfl Negative Urine Opiates Screen Negative Urine Methadone Screen Negative Ur Barbiturates Screen Negative Ur Phencyclidine Scrn Negative Ur Amphetamine Screen Negative U Benzodiazepines Scrn Negative Urine Cocaine Screen Negative U Cannabinoids Screen Positive A Monoscreen Influenza A (RT-PCR) Negative Influenza B (RT-PCR) Negative RSV (RT-PCR) Negative SARS-CoV-2 RNA (RT-PCR) Negative Group A Strep (PCR) 04/28/24 04/28/24 04/28/24 20:20 22:45 23:29 WBC RBC Hgb Hct MCV MCH MCHC RDW Plt Count MPV Immature Gran % (Auto) Neut % (Auto) Lymph % (Auto) [place] % (Auto) Eos % (Auto) Baso % (Auto) Lymph # (Auto) [place] # (Auto) Eos # (Auto) Baso # (Auto) Abs Immat Gran (auto) Absolute Neuts (auto) Absolute Nucleated RBC Nucleated RBC % PT INR APTT D-Dimer Sodium Potassium Chloride Carbon Dioxide Anion Gap BUN Creatinine Estim Creat Clear Calc Estimated GFR Glucose POC Capillary Glucose 72 Calcium Total Bilirubin AST ALT Alkaline Phosphatase Troponin I < 0.012 NT-Pro-B Natriuret Pep Total Protein Albumin TSH (Reflex) Urine Color Urine Appearance Urine pH Ur Specific [place] Urine Protein Urine Glucose (UA) Urine Ketones Ur Blood (Man) Urine Nitrate Urine Bilirubin Urine Urobilinogen Leukocyte Esterase Rfl Urine Opiates Screen Urine Methadone Screen Ur Barbiturates Screen Ur Phencyclidine Scrn Ur Amphetamine Screen U Benzodiazepines Scrn Urine Cocaine Screen U Cannabinoids Screen Monoscreen Negative Influenza A (RT-PCR) Influenza B (RT-PCR) RSV (RT-PCR) SARS-CoV-2 RNA (RT-PCR) Group A Strep (PCR) Not detected Quality VTE Prophylaxis VTE prophylaxis: pharmacologic ordered (Lovenox 40 mg subQ daily.) Hospitalist [facility] Advance Care Plan I have confirmed that the patient's Advanced Care Plan is present, code status is documented, or surrogate decision maker is listed in patient medical record.: Yes Medication Reconciliation I have utilized all available resources to obtain, update and review the patients current medications (includes all prescriptions, OTC, herbals, cannabis, and nutritional supplements).: Yes
--- NOTE | 2024-04-29 14:24 | ADMGEN ---
This patient, Luis Alfredo Mendes, was admitted to 3 [facility] Surg Room 301-01. Patient/family oriented to hospital policies and general routines including ID bracelet, bed and alarms, visiting hours, pain management, procedures, bathroom and other care routines, personal items, smoking policy, room service/diet, and visiting hours. Information on how to activate the Rapid Response Team has been discussed. Patient/Family are encouraged to report perceived risks to care and to ask questions if they do not understand what they are told or what they should do.
[2024-04-29 15:29] LABS: Immature Reticulocyte Fraction 24.2 % (3.0-15.9); Reticulocyte Hemoglobin Conten 36.2 pg (28.2-36.6); Reticulocyte Percent 2.26 % (0.7-4.3); Reticulocytes Absolute 0.09 10^6/uL (0.02-0.10)
[2024-04-29 16:07] LABS: Iron 124 ug/dL (49-181); Lactate Dehydrogenase 240 U/L (120-246)
[2024-04-29 16:18] LABS: Percent Iron Saturation 48 % (20-50)
[2024-04-29 16:39] LABS: Thyroid Stimulating Hormone Reflex 0.729 uIU/mL (0.465-4.68)
[2024-04-29 18:23] LABS: Hematocrit 41.9 % (42.0-52.0); Hemoglobin 13.5 g/dL (14.0-18.0); Mean Corpuscular HGB Conc 32.2 g/dl (32-36); Mean Corpuscular Hemoglobin 32.6 pg (26-34); Mean Corpuscular Volume 101.2 fl (80-100); Platelet Count Result 216 k/mm3 (150-375); Red Blood Count 4.14 M/mm3 (4.6-6.20); Red Cell Distribution Width 12.5 % (11.5-14.5); White Blood Count 5.5 K/mm3 (4.5-10.0)
[2024-04-29 18:33] LABS: Alanine Aminotransferase 18 U/L (6-50); Albumin Level 3.5 g/dL (3.5-5.1); Alkaline Phosphatase 79 U/L (38-126); Anion Gap 8 mmol/L (4-12); Aspartate Amino Transferase 22 U/L (17-59); Bilirubin,Total 1.2 mg/dL (0.2-1.3); Blood Urea Nitrogen 11 mg/dL (9-20); Calcium 9.1 mg/dL (8.4-10.2); Carbon Dioxide 24 mmol/L (22-30); Chloride 105 mmol/L (98-107); Estimated CRCL calculation 190 ml/min; Estimated Glomerular Filt Rate > 60; Glucose 100 mg/dL (65-110); Potassium 4.6 mmol/L (3.4-5.0); Sodium 137 mmol/L (137-145)
[2024-04-29 20:51] LABS: Folic Acid 10.1 ng/mL (2.76->20)
[2024-04-30] VITALS (8 sets, daily range): BP systolic 124–149; BP diastolic 55–85; PULSE 43–68; RESP 16–18; TEMP 35.9–36.6; O2SAT 93–100
[2024-04-30 06:38] LABS: Hematocrit 37.7 % (42.0-52.0); Hemoglobin 12.5 g/dL (14.0-18.0); Mean Corpuscular HGB Conc 33.2 g/dl (32-36); Mean Corpuscular Hemoglobin 32.4 pg (26-34); Mean Corpuscular Volume 97.7 fl (80-100); Mean Platelet Volume 12.1 fl (7.4-10.4); Platelet Count Result 206 k/mm3 (150-375); Red Blood Count 3.86 M/mm3 (4.6-6.20); Red Cell Distribution Width 12.1 % (11.5-14.5); White Blood Count 5.9 K/mm3 (4.5-10.0)
[2024-04-30 06:58] LABS: Alanine Aminotransferase 18 U/L (6-50); Albumin Level 3.6 g/dL (3.5-5.1); Alkaline Phosphatase 79 U/L (38-126); Anion Gap 7 mmol/L (4-12); Aspartate Amino Transferase 20 U/L (17-59); Bilirubin,Total 0.9 mg/dL (0.2-1.3); Blood Urea Nitrogen 12 mg/dL (9-20); Calcium 8.8 mg/dL (8.4-10.2); Carbon Dioxide 25 mmol/L (22-30); Chloride 105 mmol/L (98-107); Estimated CRCL calculation 183 ml/min; Estimated Glomerular Filt Rate > 60; Glucose 129 mg/dL (65-110); Potassium 3.8 mmol/L (3.4-5.0); Sodium 137 mmol/L (137-145)
[2024-04-30] MEDS: ENOXAPARIN 40 MG/0.4 ML SYRINGE SUB-Q (07:46)
[2024-04-30] MEDS: PANTOPRAZOLE 40 MG TABLET PO (07:46)
[2024-04-30] MEDS: ONDANSETRON HCL ODT 4 MG TABLET PO (07:46)
--- NOTE | 2024-04-30 13:02 | PM.IMPN ---
Progress Note: A&P Assessment and Plan (1) Bradycardia: Code(s): R00.1 - Bradycardia, unspecified Status: Acute (2) Edema of lower extremity: Code(s): R60.0 - Localized edema Status: Acute Plan Bradycardia with lower extremities edema EKG showed sinus bradycardia BP 149/85 ECHO pending Cardiology on board Anxiety/Bipolar/Depression/PTSD/Anger issues holing all pacyh meds Follows psychiatry DVT prophylaxis on Sq Lovenox Patient has bradycardia secondary to medication a affect. This is likely contributing to the patient's symptoms of lightheadedness and lower extremity edema (which is minimal). UA was obtained to rule out any component of possible proteinuria that could contribute to third-spacing of fluids. Bradycardia improved after glucagon and calcium gluconate. Patient's heart rates are still in the 50s but he has not had any drop in his heart rate back down into the 30s since treatment. Will hold propranolol. Will check echocardiogram oil prospecting observer further evaluate patient's cardiac structure and function will out heart failure. Will monitor patient on telemetry. The patient is unsure of what his home medications are and is med rec has not yet been reconciled at the time of my documentation. I did discuss with the patient the likelihood of his chronic nausea and or vomiting is likely at least exacerbated by his marijuana use. The patient of intermittently disagrees with this and is not interested in quitting smoking marijuana. The importance of stopping vape being was also discussed with the patient which she is not interested in entertaining. Will place patient on Protonix p.o. daily and Phenergan as needed for recurrent nausea. Patient has been admitted as observation status. Subjective Date/time seen: 04/30/24 13:02 Interval history: patient comfortable at bedside, MD 64, and blood pressure 149/85 Review of Systems Review of Systems: 12 systems were reviewed with pertinent positives and negatives per HPI. Except as documented in the HPI, all other systems were reviewed and are negative. Exam Narrative: Weight 130.3 kg BMI 37.9 Const: Other: No acute distress, obese, appears older than stated age HENMT: Other: Mucous membranes are moist, no oral pharyngeal erythema Eyes: Other: Pupils are equal and reactive, no scleral icterus, no conjunctival pallor Neck: Other: No JVD, no lymphadenopathy, no thyromegaly Resp: Other: Clear to auscultation bilaterally, no increased work of breathing Cardio: Other: 2+ bilateral radial pedal pulses, sinus bradycardia, no JVD, no murmur GI: Other: Soft, nontender, nondistended, positive bowel sounds Skin: Other: No jaundice, no pallor, multiple tattoos including a tattoo above and below the right eye immature tattoos noted on the arms and across the chest as well Neuro: Other: Patient was difficult to arouse from sleep but once awake was alert oriented x4, speech is clear but slow, no facial asymmetry, no localizing neurologic deficits noted during the course of conversation Extrem: Other: Trace edema to ankles, 5/5 strength bilateral data warehouse analyst and bilateral lower extremities Psych: Other: Flat affect, cooperative, avoids eye contact Objective Data Vital Signs Vital Signs: Vital Signs - 24 hr 04/29/24 13:27 04/29/24 13:35 04/29/24 13:45 Temperature Pulse Rate 61 60 68 Respiratory Rate 13 12 18 Blood Pressure Pulse Oximetry Oxygen Delivery 04/29/24 14:24 04/29/24 14:49 04/29/24 16:00 Temperature 97.9 F Pulse Rate 52 L 57 L Respiratory Rate 18 Blood Pressure 139/76 Pulse Oximetry 97 Oxygen Delivery Room Air 04/29/24 16:00 04/29/24 20:00 04/29/24 21:14 Temperature 98.7 F 97.3 F L Pulse Rate 63 67 58 L Respiratory Rate 18 14 Blood Pressure 148/75 H 130/82 Pulse Oximetry 100 99 Oxygen Delivery 04/29/24 23:53 04/30/24 00:00 04/30/24 04:00 Temperature 98.8 F Pulse Rate 66 66 53 L Respiratory Rate 16 Blood Pressure 138/65 Pulse Oximetry 97 Oxygen Delivery 04/30/24 05:08 04/30/24 07:56 04/30/24 08:00 Temperature 97.8 F 96.7 F L Pulse Rate 61 53 L 43 L Respiratory Rate 18 16 Blood Pressure 137/58 L 147/55 H Pulse Oximetry 93 100 Oxygen Delivery 04/30/24 08:00 04/30/24 11:53 Temperature 97.4 F L Pulse Rate 64 Respiratory Rate 16 Blood Pressure 149/85 H Pulse Oximetry 97 Oxygen Delivery Room Air Intake/Output Intake/Output: Intake & Output 04/27/24 04/28/24 04/29/24 04/30/24 23:59 23:59 23:59 23:59 Intake Total 102 034 4496 Balance 196 015 3830 Meds/Results Medications: Active Medications Generic Name Dose Route Start Last Admin Trade Name Freq PRN Reason Stop Dose Admin Enoxaparin Sodium 40 mg 04/30/24 09:00 04/30/24 07:46 Enoxaparin 40 Mg/0.4 Ml Syringe SUB-Q 40 mg DAILY PAMELA Administration Ondansetron HCl 4 mg 04/30/24 09:00 04/30/24 07:46 Ondansetron Hcl Odt 4 Mg Tablet PO 4 mg DAILY PAMELA Administration Ondansetron HCl 4 mg 04/29/24 21:22 Ondansetron Inj 4 Mg/2 Ml Vial IV PUSH Q4H PRN Nausea And Vomiting Pantoprazole Sodium 40 mg 04/29/24 21:00 04/30/24 07:46 Pantoprazole 40 Mg Tablet PO 40 mg Q12HR PAMELA Administration Perflutren Lipid Microsphere 0 ml 04/28/24 22:13 Perflutren Lipid Microspheres 1.5 Ml Vial Diluted To 10 Ml Total Volume IV PUSH 05/01/24 22:14 ONCE PRN adequate visualization Protocol Radiology Results: ITS Impressions Chest X-Ray 04/28/24 19:39 IMPRESSION: No acute cardiopulmonary pathology. Labs Labs: Laboratory Results - last 24 hr 04/29/24 04/30/24 14:59 06:11 WBC 5.5 5.9 RBC 4.14 L 3.86 L Hgb 13.5 L 12.5 L Hct 41.9 L 37.7 L MCV 101.2 H 97.7 MCH 32.6 32.4 MCHC 32.2 33.2 RDW 12.5 12.1 Plt Count 216 206 MPV 13.0 H 12.1 H Absolute Retic 0.09 Percent Retic 2.26 Immature Retic Fraction 24.2 H Retic Hgb Content 36.2 Sodium 137 137 Potassium 4.6 3.8 Chloride 105 105 Carbon Dioxide 24 25 Anion Gap 8 7 BUN 11 12 Creatinine 0.74 0.77 Estim Creat Clear Calc 190 183 Estimated GFR > 60 > 60 Glucose 100 129 H Calcium 9.1 8.8 Iron 124 TIBC 259 L % Saturation 48 Ferritin 56.90 Total Bilirubin 1.2 0.9 Direct Bilirubin 0.0 AST 22 20 ALT 18 18 Alkaline Phosphatase 79 79 Lactate Dehydrogenase 240 Total Protein 6.0 L 7.0 Albumin 3.5 3.6 Vitamin B12 352.0 Folate 10.1 TSH (Reflex) 0.729 SANJAY, IgG Interpret Neg SANJAY, Poly Interpret Strategic Marketing Associate SANJAY, Complement Interp Negative Quality VTE Prophylaxis VTE prophylaxis: pharmacologic ordered (Lovenox 40 mg subQ daily.)
--- NOTE | 2024-04-30 16:14 | PM.DS ---
DS: Admitting Diagnosis Discharge Date 04/30/24 Admitting Diagnosis Lower leg swelling for 3 days DS: Discharge Diagnosis Discharge Diagnosis (1) Bradycardia: Code(s): R00.1 - Bradycardia, unspecified Status: Acute (2) Edema of lower extremity: Code(s): R60.0 - Localized edema Status: Acute DS: Summary Hospital Course Hospital Course: 24-year-old male with a past medical history of anxiety and depression who presented to the ER with 3 days of lower extremity swelling. The patient had presented to [facility] initially for his leg swelling but was found to be bradycardic. He was directed to come to the ER for evaluation. He reports that his symptoms started shortly after being placed on propanolol. He reports he has not felt good since he was started on the propanolol for his anxiety. He became more concerned when he began having some mild swelling of his ankles and went to urgent care. At urgent care he was noted to have heart rates in the 30s and was sent to the ER for evaluation. In the ER he received calcium gluconate, Benadryl, glucagon x2 and Reglan. He had improvement in his bradycardia with heart rates ranging between the 40s and 70s. He reports that since he has been started on the propranolol like he has been having intermittent shortness of breath and lightheadedness is worse with activity. He denies any chest pain or palpitations. He did not realize that his heart rate was low until he came in for evaluation. Patient reports that his nausea vomiting has been ongoing and intermittent for 3 years. His nausea and GI symptoms are unchanged from his baseline. He denies any hematemesis or coffee-ground emesis. He has been having normal bowel movements. He smokes marijuana frequently and states that marijuana is the only thing that helps with his nausea and vomiting. Propranolol was held, ECHO showed normal LV function and was in the 60s with BP 149/85. cardiology evaluated and recommended discontinuation of propranolol and discharge with outpatient follow up No edema appreciated on lower extremities exam. Propranolol discontinued and patient will follow up with PCP in 3-5 days and cardiology as instructed Time Spent with Patient Time attestation: Total time spent providing and/or coordinating discharge services: DS: Data Data Completed and Pending Labs on day of discharge: Labs from last 24 hours 04/30/24 04/29/24 06:11 14:59 WBC 5.9 5.5 RBC 3.86 L 4.14 L Hgb 12.5 L 13.5 L Hct 37.7 L 41.9 L MCV 97.7 101.2 H MCH 32.4 32.6 MCHC 33.2 32.2 RDW 12.1 12.5 Plt Count 206 216 MPV 12.1 H 13.0 H Sodium 137 137 Potassium 3.8 4.6 Chloride 105 105 Carbon Dioxide 25 24 Anion Gap 7 8 BUN 12 11 Creatinine 0.77 0.74 Estim Creat Clear Calc 183 190 Estimated GFR > 60 > 60 Glucose 129 H 100 Calcium 8.8 9.1 TIBC 259 L % Saturation 48 Ferritin 56.90 Total Bilirubin 0.9 1.2 Direct Bilirubin 0.0 AST 20 22 ALT 18 18 Alkaline Phosphatase 79 79 Total Protein 7.0 6.0 L Albumin 3.6 3.5 Vitamin B12 352.0 Folate 10.1 TSH (Reflex) 0.729 SANJAY, IgG Interpret Neg SANJAY, Poly Interpret Swatch Maker SANJAY, Complement Interp Negative Discharge Plan Discharge Attending physician on discharge: Srinivas Gil Consulting providers: Timbo Rosales Discharging Clinician: Srinivas Gil Anticipated Discharge Date/Time: 04/30/24 16:08 Patient Disposition: Home, Self-Care Activity: as tolerated Diet: regular Patient Instructions: Antibiotic Form Patient Language: [place] Stand Alone Forms: General Discharge Information Follow-up/Referrals: Timbo Rosales MD [Physician] - (F/u with cardiology as instructed ) Joseph,Tawanda Crane APRN [Primary Care Provider] - (F/u with PCP in 3-5 days ) Discharge Medications: Continued ondansetron HCl 4 mg tablet 4 mg PO DAILY olanzapine 5 mg tablet 7.5 mg PO HS hydroxyzine HCl 50 mg tablet 100 mg PO HS omeprazole 40 mg capsule,delayed release(DR/EC) 40 mg PO DAILY buspirone 30 mg tablet 30 mg PO TID fluoxetine 20 mg capsule 60 mg PO DAILY atomoxetine 18 mg capsule 18 mg PO DAILY Patient Comments: unable to fill prescription to keep taking Sublocade 300 mg/1.5 mL solution, extended rel syringe 300 mg SUBCUT MONTHLY ibuprofen [Motrin IB] 200 mg tablet 200 mg PO Q6H PRN (Reason: pain) Discontinued propranolol 10 mg tablet 10 mg PO Q12H Date of admission: 04/28/24 21:59 Primary Care Provider: Joseph,Tawanda Crane Admitting Provider: Britni Alva Attending physician on admission: Britni Alva Condition: Stable
[2024-05-01 04:43] LABS: Haptoglobin 136 mg/dL (43-212)
== END 2024-04-30 17:19 | disposition home or self-care (01) ==
LOC: ANHED 22:17 → ANH3MEDSUR 22:38
PROVIDERS: General Practice; Admitting Provider Internal Medicine; Emergency Provider Physician Assistant; PCP Nurse Practitioner; Visit Provider Internal Medicine
DX: R60.0 Localized edema (principal); R00.1 Bradycardia, unspecified; R06.02 Shortness of breath; R42 Dizziness and giddiness; R11.2 Nausea with vomiting, unspecified; F17.290 Nicotine dependence, other tobacco product, uncomplicated; F12.90 Cannabis use, unspecified, uncomplicated; F43.10 Post-traumatic stress disorder, unspecified; F90.9 Attention-deficit hyperactivity disorder, unspecified type; F41.9 Anxiety disorder, unspecified; F31.9 Bipolar disorder, unspecified; R45.4 Irritability and anger; Z20.822 Contact with and (suspected) exposure to COVID-19; Z79.899 Other long term (current) drug therapy
CPT/HCPCS: 36415; 71046; 80053; 80307; 81003; 82248; 82607; 82728; 82746; 82948; 83010; 83540; 83550; 83615; 83880; 84443; 84484; 85025; 85027; 85046; 85380; 85610; 85730; 86308; 86880; 87637; 87651; 93005; 93306; 96365; 96372; 96375; 96376; 99285; A9270; G0378; G0379; J0612; J1200; J1610; J1650; J2405; J2765; J7040

== ENCOUNTER 2024-12-09 13:26 | Emergency (ER) | payer BC, SELFPAY ==
--- OUTSIDE RECORDS SUMMARY | 2024-09-30 09:20 | XMS_ITS ---
Author Organization [facility] Address [address] [place] [address] Care Team Providers Care Allergy And Immunology Chief Name Role Phone Gerald Morales Primary Care Provider Yasmeen Greer Unavailable [phone] REASON FOR VISIT stomach issues, last seen 07/01/24 Social History Sex Assigned At : Social History Observation Description Sex Assigned At Male Encounters Encounter Location Date Provider Diagnosis [facility] [place] [address] 09/30/2024 Gerald Morales Plan Of Treatment No Information Progress Notes * Luis Alfredo MENDESDOB:2000 (24 yo M)Acc No.[id number]:09/30/2024 UNLOCKED PROGRESS NOTE Progress Notes Patient: Luis Alfredo CORBIN Provider: Rhett Morales :2000 A ge:24 Y S ex:Male Date:09/30/2024 [facility] [address] Subjective: * Chief Complaints: * 1 . Stomach issues, last seen 07/01/24. * Medical History: Objective: * Vitals: Assessment: Plan: * Treatment: * * Electronic signature of Chelo Morales , [id number] on 12/09/2024 at 02:43 PM CDT Sign off status: Pending * Provider: Rhett Morales Date: 0 09/30/2024 Generated for Bj sharpe/Santos/Irenasmitting on: 1 02:43 PM CDT
--- OUTSIDE RECORDS SUMMARY | 2024-10-03 06:40 | XMS_ITS ---
Author Organization [facility] Address [address] [place] [address] Care Team Providers Care Mental Tester Name Role Phone Gerald Morales Primary Care Provider Yasmeen Greer [phone] REASON FOR VISIT 4 week F/U Social History Sex Assigned At : Social History Observation Description Sex Assigned At Male Encounters Encounter Location Date Provider Diagnosis [address] [place] [address] 10/03/2024 Yasmeen Greer Plan Of Treatment No Information Progress Notes * Luis Alfredo MENDESDOB:2000 (24 yo M)Acc No.[id number]:10/03/2024 UNLOCKED PROGRESS NOTE Patient: Luis Alfredo CORBIN Provider: ZACH Clancy :2000 A ge:24 Y S ex:Male Date:10/03/2024 Address:[address], [address], [place] Pcp:Gerald Morales Subjective: * Chief Complaints: * 1 . 4 week F/U. * Medical History: Objective: * Vitals: Assessment: Plan: * Treatment: * * Electronic signature of Jenn Greer on 12/09/2024 at 02:43 PM CDT Sign off status: Pending * Provider: ZACH Clancy Date: 0 10/03/2024 Generated for Printi ng/Faraziag/eTransmitting on: 1 02:43 PM CDT
--- OUTSIDE RECORDS SUMMARY | 2024-10-07 08:00 | XMS_ITS ---
Author Organization [facility] Address [address] [place] [address] Care Team Providers Care Curing Press Operator Name Role Phone Gerald Morales Primary Care Provider Yasmeen Greer Unavailable [phone] REASON FOR VISIT r/s from 09/30/2024 Social History Sex Assigned At : Social History Observation Description Sex Assigned At Male Encounters Encounter Location Date Provider Diagnosis [facility] [place] [address] 10/07/2024 Gerald Morales Plan Of Treatment No Information Progress Notes * Luis Alfredo MENDESDOB:2000 (24 yo M)Acc No.[id number]:10/07/2024 UNLOCKED PROGRESS NOTE Progress Notes Patient: Luis Alfredo CORBIN Provider: Rhett Morales :2000 A ge:24 Y S ex:Male Date:10/07/2024 [facility] [place] [address] Subjective: * Chief Complaints: * 1 . R/s from 09/30/2024. * Medical History: Objective: * Vitals: Assessment: Plan: * Treatment: * * Electronic signature of Chelo Morales , [id number] on 12/09/2024 at 02:43 PM CDT Sign off status: Pending * Provider: Rhett Morales Date: 0 10/07/2024 Generated for Bj sharpe/Santos/Irenasmitting on: 1 02:43 PM CDT
--- NOTE | 2024-12-09 13:33 | ED.DENTAL ---
HPI - Dental/Oral General Chief complaint: Dental/Oral Stated complaint: tooth Time Seen by Provider: 12/09/24 13:37 Source: patient Mode of arrival: ambulatory Limitations: no limitations History of Present Illness HPI Narrative: Luis Alfredo is a 24-year-old male patient presenting to the clinic today with complaints of right upper dental pain, intermittent left-sided chest pain, shortness of breath, and lower extremity swelling. He reports symptoms have been going on for over 1 month. States when he stands for long period of time or stands to shower he develops chest pain and shortness of breath. Rates the pain a 7/10 and states it is sharp in nature. Has been lower extremity swelling for the past month. Denies any chest pain at this time. States his shortness of breath worsens 10 minutes after he vapes. He does smoke marijuana as well. History of bradycardia. Significant other says that they have tried some compression hose for the swelling and it does help. Does not see sheep rancher. His PCP provider is at [facility] Medications ?Medication ?Instructions ?Recorded ?Confirmed ?Last Taken ?Type atomoxetine 18 mg capsule 18 mg PO DAILY 04/28/24 04/29/24 04/01/24 History buprenorphine 300 mg/1.5 mL 300 mg subcut MONTHLY 04/28/24 04/29/24 04/23/24 History solution,exten.rel.subcutaneous syringe (Sublocade) buspirone 30 mg tablet 30 mg PO TID 04/28/24 04/29/24 04/28/24 History fluoxetine 20 mg capsule 60 mg PO DAILY 04/28/24 04/29/24 04/28/24 History hydroxyzine HCl 50 mg tablet 100 mg PO HS 04/28/24 04/29/24 04/27/24 History olanzapine 5 mg tablet 7.5 mg PO HS 04/28/24 04/29/24 04/27/24 History omeprazole 40 mg capsule,delayed 40 mg PO DAILY 04/28/24 04/29/24 04/28/24 History release ondansetron HCl 4 mg tablet 4 mg PO DAILY 04/28/24 04/29/24 04/28/24 History ibuprofen 200 mg tablet (Motrin IB) 200 mg PO Q6H PRN pain 04/29/24 04/29/24 Unknown History Allergies Allergy/AdvReac Type Severity Reaction Status Date / Time ketorolac (From Toradol) Allergy unknow Verified 12/09/24 13:52 Review of Systems Review of Systems: Pertinent positives per HPI. Patient denies any fever, chills, rash, headache, visual changes, dizziness, cough, runny nose, sore throat, palpitations, nausea, vomiting, diarrhea, constipation, abdominal pain, or any urinary issues. [facility] Past Medical History Medical History PTSD (post-traumatic stress disorder) Treated since he was 14 Anxiety and depression Surgical History Surgical History No history of previous surgery Family History Family History Mother Diabetes mellitus Social History Social History Social History: The patient lives with his girlfriend and 5-year-old children. He has used E cigarettes since he was 14 years old. He occasionally drinks in moderation (about once per month). He smokes marijuana frequently. He denies any other illicit substance use. He is currently unemployed. Code status: Full code Smoking status: Current every day smoker Tobacco type: e-cigarettes/vaping Substance use: current Substance use type: marijuana Do You Feel Safe in your Home?: Yes Lack of Transportation: No Lack of Food: Sometimes True Current Housing: I Have Housing Concerned About Future Housing: No Difficulty Paying Gas/Electric Bills: No Difficulty Paying for Meds: No Currently Unemployed: YES Education: Grade School Difficulty w/ Childcare or Family Care: No Spiritual care concerns: No Comments At the time of my signature, I reviewed and agree with the nursing past medical, surgical, social, and family history. There is no relevant family history pertinent to the patient complaint. Exam Narrative: General: Well-developed, obese, in no apparent distress Head: Normocephalic, atraumatic Eyes: Pupils equally round and reactive to light bilaterally, EOM intact, sclera and conjunctive clear, no discharge, lids normal Ears: TMs intact and clear, ear canals clear, no drainage, grossly hearing normal. Nose: Nares patent, no discharge, no inflammation, no sinus tenderness. Mouth: Oropharynx without lesions or masses, poor dentition, MMM. Neck: Supple, trachea midline, no enlargement of anterior or posterior cervical nodes, no thyroid masses or goiter palpable. Cardio: Regular rate and rhythm, s1 and s2 normal, no murmur appreciated. Resp: Clear to auscultation bilaterally anteriorly and posteriorly, no rhonchi, rales, wheezing or rubs Course Course Emergency Course: Portions of this record may have been created with voice recognition software. Level of Care: Express Care Visit Vital Signs Vital signs: Vital Signs Temperature 36.3 C L 12/09/24 13:38 Pulse Rate 69 12/09/24 13:38 Respiratory Rate 16 12/09/24 13:38 Blood Pressure 132/73 12/09/24 13:38 Pulse Oximetry 100 12/09/24 13:38 Temperature 36.3 C L 12/09/24 13:38 Pulse Rate 69 12/09/24 13:38 Respiratory Rate 16 12/09/24 13:38 Blood Pressure 132/73 12/09/24 13:38 Pulse Oximetry 100 12/09/24 13:38 Vital signs reviewed Transfer Transfered to: [facility] Transportation: Other (Private car) Transfer rationale: Intermittent chest pain and shortness of breath, bilateral lower extremity swelling, right upper dental pain-higher level of care Accepting physician: Dr. Lamas Transfer comments: Private car MDM - Dental/Oral MDM Narrative Medical decision making narrative: At the time of visit patient is resting comfortably on the exam table. Patient appears to be nontoxic. Complaints of right upper dental pain, intermittent left-sided chest pain, shortness of breath, and lower extremity swelling. He reports symptoms have been going on for over 1 month. States when he stands for long period of time or stands to shower he develops chest pain and shortness of breath. Rates the pain a 7/10 and states it is sharp in nature. Has been lower extremity swelling for the past month. Denies any chest pain at this time. States his shortness of breath worsens 10 minutes after he vapes. He does smoke marijuana as well. History of bradycardia. Significant other says that they have tried some compression hose for the swelling and it does help. Does not see sheep rancher. His PCP provider is at [facility] EKG: EKG shows sinus bradycardia with a heart rate of 58 beats per minute without ST elevation, depression, or T-wave inversion. Plan: Recommend transfer to the ER as patient is complaining about intermittent chest pain, shortness of breath, and lower extremity swelling. Patient is also complaining of right upper dental pain. Patient would like to go to [facility]. Discussed patient's case with Dr. Lamas at [facility] and he accepts patient for transfer. Differential Diagnosis Differential diagnosis: Likely gingival abscess, dental caries, toothache, dental abscess, fracture of tooth, aphthous ulcer and other (Congestive heart failure, peripheral vascular disease, venous insufficiency, coronary artery disease, PE) ECG Data EKG #1: Attestation: I personally reviewed and interpreted this ECG as follows: ECG completion date: 12/09/24 ECG completion time: 13:57 Interpretation: EKG shows sinus bradycardia with heart rate of 50 beats per minute. Early repolarization. No ST elevation, depression, or T-wave inversion. LA intervals 188 milliseconds, QRS durations 93 milliseconds, QT-QTC is 384-381 milliseconds, P-R-T axis 11? 42 19 Discharge Plan Discharge Clinical Impression: Pain, dental, Shortness of breath, Intermittent left-sided chest pain, Swelling of both lower extremities Patient Disposition: Acute Care Hospital Condition: Stable Patient Language: Kazakh Prescriptions: No Action ondansetron HCl 4 mg tablet 4 mg PO DAILY olanzapine 5 mg tablet 7.5 mg PO HS hydroxyzine HCl 50 mg tablet 100 mg PO HS omeprazole 40 mg capsule,delayed release(DR/EC) 40 mg PO DAILY buspirone 30 mg tablet 30 mg PO TID fluoxetine 20 mg capsule 60 mg PO DAILY atomoxetine 18 mg capsule 18 mg PO DAILY Patient Comments: unable to fill prescription to keep taking Sublocade 300 mg/1.5 mL solution, extended rel syringe 300 mg SUBCUT MONTHLY ibuprofen [Motrin IB] 200 mg tablet 200 mg PO Q6H PRN (Reason: pain) Follow-up/Referrals: Gerald Morales MD [Primary Care Provider, Hospitalist] Time of Disposition: 14:05 Quality NIHSS Nursing Documentation ED NIHSS nursing documentation: reviewed/agree
[2024-12-09 13:38] VITALS: BP 132/73; PULSE 69; RESP 16; TEMP 36.3; O2SAT 100
--- NOTE | 2024-12-09 13:47 | ECG_ITS ---
Test Date: 2024-12-09 13:57:25 Measurements Intervals Eclectic Rate: 58 P: 11 MD: 188 QRS: 42 QRSD: 93 T: 19 QT: 384 QTc: 379 Interpretive Statements SINUS BRADYCARDIA DELAYED PRECORDIAL R/S TRANSITION ST ELEVATION IN DIFFUSE LEADS- PROABLY EARLY REPOLARIZATION BASELINE ARTIFACT- I, II, III, AVR, AVL, AVF BORDERLINE ECG Compared to ECG 04/28/2024 22:40:12 NO SIGNIFICANT CHANGE Electronically Signed On 12-09-2024 15:48:24 CDT by David Merino D.O.
--- OUTSIDE RECORDS SUMMARY | 2024-12-09 14:43 | XMS_ITS | Patient Health Record ---
Author Organization [facility] [employer] Address [address] [facility] [address] [place] [address] Support Name Relationship Address Phone JOCELIN GONSALEZ Guarantor Unknown [phone] Reason For Referral No Information Plan Of Treatment No Information
--- OUTSIDE RECORDS SUMMARY | 2024-12-09 14:44 | XMS_ITS | Patient Health Record ---
Author Organization [facility] [employer] Address [address] [place] [address] Support Name Relationship Address Phone Miri Greer Emergency Contact [address] [place] [address] Miri Greer Guarantor Unknown [phone] Reason For Referral No Information Medications Medication SIG (Take, Route, Frequency, Duration) Notes Start Date End Date Status Amitriptyline HCl 10 MG Tablet 1 tablet Orally Once a day; Duration: 90 days 10/16/2017 Active Amphetamine-Dextroamphetam ine 10 MG Tablet 1 tablet Orally twice a day; Duration: 30 days 12/04/2015 Not-Taking traZODone HCl 50 MG Tablet 1 tablet at b edtime as needed Orally Once a day; Duration: 30 day(s) 10/16/2017 Active cloNIDine HCl 0.3 MG Tablet as directed Orally at bedtime; Duration: 30 days 12/04/2015 Not-Taking Immunizations Vaccine Route Administration Date Status Comme nts Influenza unspecified formulation (CPT 10419 Inactive) Unknown 01/02/2007 Administered Meningococcal MPSV4 IM Intramuscular 04/24/2014 Administer ed Non VFC Gardasil IM Intramuscular 04/24/2014 Administered Non VFC MMR II Unknown 08/22/2002 Administered Pneumococcal conjugate PCV 7 Unknown 2001 Administered Pneumococcal conjugate PCV 7 Unknown 2001 Administered Pneumococcal conjugate PCV 7 Unknown 08/22/2002 Administered VFC Boostrix Unknown 10/23/2012 Administered VFC Comvax Unknown 2001 Administered VFC Comvax Unknown 2001 Administered VFC Daptacel Unknown 2001 Administered VFC Daptacel Unknown 2001 Administered VFC Daptacel Unknown 2001 Administered VFC Daptacel Unknown 07/26/2006 Administered VFC Gardasil 9 IM Intramuscular 12/04/2015 Administered VFC Havrix-Peds Unknown 05/31/2007 Administered VFC Havrix-Peds IM Intramuscular 12/04/2015 Administered VFC IPV Unknown 2001 Administered VFC IPV Unknown 2001 Administered VFC IPV Unknown 07/26/2006 Administered VFC Pediarix Unknown 08/22/2002 Administered VFC Proquad Unknown 07/26/2006 Administered VFC Varivax Unknown 08/22/2002 Administered X Hiberix Unknown 08/22/2002 Administered Social History Social History [facility] Comprehensive Health As sessment Social Info Question Answer Notes Household/Enviromental Risk Factors: Any Patient/Famil y Concerns : No Do you have any social/cultu ral characteristics? Social Characteristics: Yes Highest level of education: Grade School Concerns with daily living situations: None Support from family/friends: Yes Participation in community activities: No Cultural Characteristics: No Communication Barriers Are: None Assessment of Health Literacy Understands how to take medication Yes Understands risks/side effects of medication Yes Drugs/Alcohol: Social Info Question Answer Notes Drugs Have you used drugs other than those for medical reasons in the past 12 months? No Caffeine Intake: none Additional Details Category Social Info Options Details Miscellaneous: School Name/Grade Level 9t h grade Self-Management Flu Shot No Section Notes: Pt lives with aunt Pt lives with mom and brothe r Pt lives with aunt Pt lives with aunt Problems Problem Type SNOMED Code ICD Code Onset Dates Problem Status W/U Status Risk Notes Problem Depression (274874285) Depression (F32.9) Active confirmed Problem Attention deficit hyperactivity disorder (821633553) ADHD (attention deficit hyperactivity disorder) (F90.9) Active confirmed Problem Insomnia disorder related to another mental disorder (79589203) Psychophysiological insomnia (F51.04) Active confirmed Problem Attention deficit hyperactivity disorder (179531081) Attention deficit hyperactivity disorder (ADHD), combined type (F90.2) Active confirmed Problem History of marij uana use (Z87.898) Active confirmed Problem Conduct disorder (511632187) 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) Active confirmed Plan Of Treatment No Information Insurance Providers Payer Name Payer Address Payer Phone Subscriber Number Group Number Insured Name Patient Relationship to Insured Coverage Start Date Coverage End Date Ileana Martínez [employer] [address] [address] [place] [address] [id number] Luis Alfredo Mendes Self - patient is the insured 8 [employer] [place] [employer] [address] [address] [place] [address] [id number] Luis Alfredo Mendes Self - patient is the insured 8 [employer] [place] FFS [address] [address] [place] [address] [id number] Luis Alfredo Mendes Self - patient is the insured 8 Medical (General) History Medical History History ICD Code ADHD depression learning disability Headaches Surgical History Surgery Date(Month/Year) Hospitalization History Reason Date(Month/Year) [facility] broken thumb right hand 08/11
--- OUTSIDE RECORDS SUMMARY | 2024-12-09 14:44 | XMS_ITS | Clinical Summary ---
Author Organization [facility] Address [facility] [place] [address] Care Team Providers Care Cigar Head Puncher Name Role Phone None, Provider MD Primary Care Provider Unavaila ble Allergies Active Allergy Reactions Criticality Noted Date Comments Latex Rash Low 07/24/2019 Medications haloperidol (HALDOL) 1 MG tablet Take 1 tablet (1 mg total) by mouth 3 (three) times daily. 30 tablet 06/13/2024 Active Family History Medical History Relation Comments autistic Brother Diabetes Mother Other Mother Relation Status Comments Brother Mother Social History Tobacco Use Types Packs/Day Years Used Date Smoking Tobacco: Former Cigarettes Electronic Cigarettes Smokeless Tobacco: Never Tobacco Cessation:Counseling Given: Not Answered Alcohol Use Standard Drinks/Week Comments Yes 0 (1 standard drink = 0.6 oz pur e alcohol) occasionally AUDIT-C Answer Date Recorded Frequency of Alcohol Consumption Never 07/18/2019 Average Number of Drinks Not on file 020 Frequency of Binge Drinking Not on file 06/28 Sex and Gender Information Value Date Recorded Sex Assigned at Male 06/13/2024 2:31 PM CDT Legal Sex Male 1:00 PM CDT Gender Identity Not on file Sexual Orientation Not on file Last Filed Vital Signs Vital Sign Reading Time Taken Comments Blood Pressure 137/74 06/13/2024 6:18 PM CDT Pulse 67 06/13/2024 6:18 PM CDT Temperature 36.8 C (98.2 F) 06/13/2024 6:18 PM CDT Respiratory Rate 15 06/13/2024 6:18 PM CDT Oxygen Saturation 99% 06/13/2024 6:18 PM CDT Inhaled Oxygen Concentration - - Weight 122.2 kg (269 lb 6.4 oz) 06/13/2024 2:32 PM CDT Height 175.3 cm (5' 9) 06/13/2024 2:32 PM CDT Body Mass Index 39.78 06/13/2024 2:32 PM CDT Plan of Treatment Health Maintenance Due Date Last Done Comments Hepatitis B Vaccines (2 of 3 - 3-dose series) 09/19/2002 08/22/2002 Annual Physical 02/01/2004 DTaP, Tdap and Td Vaccines (6 - Tdap) 02/01/2012 07/26/2006, 08/22/2002, 2001, Additional history exists Meningococcal B Vaccine (1 of 2 - Standard) 2017 Hepatitis C 2019 COVID-19 Vaccine ( season) 2024 Influenza Adult (#1) 2024 Meningococcal Vaccine Aged Out 04/24/2014 No giulia harjit eligible based on patient's age to complete this topic HPV Vaccines Completed 12/04/2015, 04/24/2014 Hepatitis A Vaccines Aged Out No long er eligible based on patient's age to complete this topic Pneumococcal Vaccine: Pediatrics (0 to 5 Years) and At-Risk Patients (6 to 49 Years) Aged Out No longer eligible based on patient's age to complete this topic RSV Immunizations Under 20 Months Aged Out No longer eligible based on patient's age to complete this topic Insurance [facility] MEDICAID C/O PROVIDER SERVICES SMITA LAINEZ [id number] Care Teams Cigar Head Puncher Relationship Specialty Start Date End Date None, Provider, PCP - General 07/18/19
--- OUTSIDE RECORDS SUMMARY | 2024-12-09 14:44 | XMS_ITS | Patient Health Record ---
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 Somewhat, room for improvement Previous medication trials: Minipress, Depakote (didn't help), Zoloft (caused suicidal ideations), Lamotrigine (reportedly worsened irritability and depression), Quetiapine (worsening nightmares), prazosin (worsening nightmares), aripiprazole (worse nightmares/drug ) Current/previous therapies: I do group sessions at [facility] on Tuesdays and , has been participating in this for about 2-3 months Examination as documented - see pertinent aspects of office visit documentation. Pertinent diagnostics: NOT DISCUSSED DUE TO TIME CONSTRAINTS - WILL DISCUSS AT FUTURE VISIT Differential diagnoses: RECOMMENDATIONS: START hydroxyzine as prescribed to assist with sleep - educated patient/guardian on adverse effects, risks and benefits, as well as alternative treatments START atomoxetine to assist with ADHD (will ideally also help with mood) - educated patient/guardian on adverse effects, risks and benefits, as well as alternative treatments INCREASE fluoxetine as prescribed to assist with anxiety/depressio n - educated patient/guardian on adverse effects, risks and benefits, as well as alternative treatments INCREASE olanzapine as prescribed to assist with mood/stability - educated patient/guardian on adverse effects, risks and benefits, as well as alternative treatments INCREASE buspirone as prescribed to assist with anxiety - Continue/modify other medications as prescribed - educated patient/guardian on adverse effects, risks and benefits, as well as alternative treatments Consume well balanced diet, preferably low in saturated fats (solid at room temperature, such as butter, margarine, Crisco, etc) and low in sodium (<2,000mg per day). Consume plenty of fruits/vegetables , healthy grains/whole grains, unsaturated/healt hy fats (liquid at room temperature, such as olive oil, sunflower seed oil, canola, vegetable, etc.). Exercise regularly - Develop an exercise routine. 30 minutes of moderate exercise (walking at a brisk pace) 5 times per week is recommended. You should work hard enough to cause a sweat but still be able to talk with others while exercising. Exercise improves overall health - improves blood pressure and blood sugar, helps control weight, reduces stress, and improves mood. Practice stress reduction techniques, such as guided imagery, journaling, aromatherapy, acupuncture/acupr essure, deep breathing, etc. Practice healthy sleep hygiene - maintain regular routine, no caffeine after 1PM, no exercise 1-2 hours prior to bedtime, keep bedroom dark and cool, no TV or electronics while in bed. Consider melatonin as needed. Consider cognitive behavioral therapy for insomnia (CBT-I). Consider/Continue therapy. Consider/Continue substance cessation therapy as needed - contact office if desiring medication assisted therapy. Manage co-morbid conditions. Continue monitoring symptoms - report persistent or worsening/concern ing symptoms to the office or go to the ER. For mental health CRISIS, please reach out to [phone] (National Suicide and Crisis Lifeline), 911, go to the emergency department, or contact the [facility] Crisis Unit/Team. Follow up as scheduled in 2 weeks or sooner if necessary. Follow up with PCP and/or other specialists as advised. NEXT STEP: Consider increasing olanzapine. Consider increasing fluoxetine. Consider increasing hydroxyzine. Consider increasing atomoxetine. Consider increasing buspirone. Consider other medication adjustments as needed. 03/20/2024 Morbid obesity due to excess calories (ICD-10 - E66.01) 04/10/2024 Anxiety disorder, unspecified (ICD-10 - F41.9) See assessment and plan for mood disorder 03/20/2024 Nausea and vomiting, unspecified vomiting type (ICD-10 - R11.2) Continue zofran as needed, start PPI, if no improvement, will consider GI referral. 03/26/2024 Opioid use disorder (ICD-10 - F11.99) 04/23/2024 Nausea (ICD-10 - R11.0) 04/23/2024 Opioid use disorder (ICD-10 - F11.99) 05/02/2024 Adverse effect of drug, subsequent encounter (ICD-10 - T50.905D) 05/02/2024 Nausea and vomiting, unspecified vomiting type (ICD-10 - R11.2) 05/02/2024 Gastroesophageal reflux disease without esophagitis (ICD-10 - K21.9) 04/23/2024 Obesity (BMI 30-39.9) (ICD-10 - E66.9) 04/10/2024 Mood disorder (ICD-10 - F39) Duration (acute/chronic), stability (controlled/uncon trolled): Chronic, noticeably improved while on medications, ran out and only recently restarted medications, see HPI - still room for improvement Current medications/effic acy: Somewhat, room for improvement Previous medication trials: Minipress, Depakote (didn't help), Zoloft (caused suicidal ideations), Lamotrigine (reportedly worsened irritability and depression), Quetiapine (worsening nightmares), prazosin (worsening nightmares), aripiprazole (worse nightmares/drug ), trazodone (ineffective) Current/previous therapies: I do group sessions at [facility] on Tuesdays and , has been participating in this for about 2-3 months Examination as documented - see pertinent aspects of office visit documentation. Pertinent diagnostics: NOT DISCUSSED DUE TO TIME CONSTRAINTS - WILL DISCUSS AT FUTURE VISIT Differential diagnoses: RECOMMENDATIONS: START propranolol as prescribed to assist with anxiety/panic/PTS D - educated patient/guardian on adverse effects, risks and benefits, as well as alternative treatments INCREASE hydroxyzine as prescribed to assist with sleep - educated patient/guardian on adverse effects, risks and benefits, as well as alternative treatments INCREASE atomoxetine to assist with ADHD (will ideally also help with mood) - educated patient/guardian on adverse effects, risks and benefits, as well as alternative treatments INCREASE fluoxetine as prescribed to assist with anxiety/depressio n - educated patient/guardian on adverse effects, risks and benefits, as well as alternative treatments INCREASE olanzapine as prescribed to assist with mood/stability - educated patient/guardian on adverse effects, risks and benefits, as well as alternative treatments INCREASE buspirone as prescribed to assist with anxiety - educated patient/guardian on adverse effects, risks and benefits, as well as alternative treatments Continue/modify other medications as prescribed - educated patient/guardian on adverse effects, risks and benefits, as well as alternative treatments Consume well balanced diet, preferably low in saturated fats (solid at room temperature, such as butter, margarine, Crisco, etc) and low in sodium (<2,000mg per day). Consume plenty of fruits/vegetables , healthy grains/whole grains, unsaturated/healt hy fats (liquid at room temperature, such as olive oil, sunflower seed oil, canola, vegetable, etc.). Exercise regularly - Develop an exercise routine. 30 minutes of moderate exercise (walking at a brisk pace) 5 times per week is recommended. You should work hard enough to cause a sweat but still be able to talk with others while exercising. Exercise improves overall health - improves blood pressure and blood sugar, helps control weight, reduces stress, and improves mood. Practice stress reduction techniques, such as guided imagery, journaling, aromatherapy, acupuncture/acupr essure, deep breathing, etc. Practice healthy sleep hygiene - maintain regular routine, no caffeine after 1PM, no exercise 1-2 hours prior to bedtime, keep bedroom dark and cool, no TV or electronics while in bed. Consider melatonin as needed. Consider cognitive behavioral therapy for insomnia (CBT-I). Consider/Continue therapy. Consider/Continue substance cessation therapy as needed - contact office if desiring medication assisted therapy. Manage co-morbid conditions. Continue monitoring symptoms - report persistent or worsening/concern ing symptoms to the office or go to the ER. For mental health CRISIS, please reach out to [phone] (National Suicide and Crisis Lifeline), 911, go to the emergency department, or contact the [facility] Crisis Unit/Team. Follow up as scheduled in 4 weeks or sooner if necessary. Follow up with PCP and/or other specialists as advised. NEXT STEP: Consider increasing olanzapine. Consider increasing fluoxetine. Consider increasing hydroxyzine. Consider increasing atomoxetine. Consider increasing buspirone. Consider other medication adjustments as needed. 03/20/2024 Nutritional counseling (ICD-10 - Z71.3) 03/06/2024 PTSD (post-traumatic stress disorder) (ICD-10 - F43.10) See assessment and plan for mood disorder 02/22/2024 Obesity (BMI 30-39.9) (ICD-10 - E66.9) 02/15/2024 Morbid obesity with BMI of 40.0-44.9, adult (ICD-10 - Z68.41) 01/24/2024 PTSD (post-traumatic stress disorder) (ICD-10 - F43.10) See assessment and plan for mood disorder 01/18/2024 Nicotine dependence, unspecified, uncomplicated (ICD-10 - F17.200) 12/14/2023 Obesity (BMI 30-39.9) (ICD-10 - E66.9) 11/18/2024 Fatigue (ICD-10 - R53.83) 10/10/2024 Mood disorder (ICD-10 - F39) Duration (acute/chronic), stability (controlled/uncon trolled): Chronic, improved while on medications, still room for improvement, see HPI Current medications/effic acy: Somewhat, room for improvement Previous medication trials: Minipress, Depakote (didn't help), Zoloft (caused suicidal ideations), Lamotrigine (reportedly worsened irritability and depression), Quetiapine (worsening nightmares), prazosin (worsening nightmares), aripiprazole (worse nightmares/drug ), trazodone (ineffective), propranolol (ALLERGY) Current/previous therapies: I do group sessions at [facility] in [place] on Tuesdays and , has been participating in this for about 2-3 months Examination as documented - see pertinent aspects of office visit documentation. Differential diagnoses: RECOMMENDATIONS: STOP zolpidem as prescribed to assist with sleep - educated patient/guardian on adverse effects, risks and benefits, as well as alternative treatments TAKE hydroxyzine during the day as discussed to assist with anxiety (due to inefficacy for sleep) - educated patient/guardian on adverse effects, risks and benefits, as well as alternative treatments INCREASE olanzapine as prescribed to assist with mood/stability, take 0.5 tablet twice daily - educated patient/guardian on adverse effects, risks and benefits, as well as alternative treatments Continue/modify other medications as prescribed - educated patient/guardian on adverse effects, risks and benefits, as well as alternative treatments Consume well balanced diet, preferably low in saturated fats (solid at room temperature, such as butter, margarine, Crisco, etc) and low in sodium (<2,000mg per day). Consume plenty of fruits/vegetables , healthy grains/whole grains, unsaturated/healt hy fats (liquid at room temperature, such as olive oil, sunflower seed oil, canola, vegetable, etc.). Exercise regularly - Develop an exercise routine. 30 minutes of moderate exercise (walking at a brisk pace) 5 times per week is recommended. You should work hard enough to cause a sweat but still be able to talk with others while exercising. Exercise improves overall health - improves blood pressure and blood sugar, helps control weight, reduces stress, and improves mood. Practice stress reduction techniques, such as guided imagery, journaling, aromatherapy, acupuncture/acupr essure, deep breathing, etc. Practice healthy sleep hygiene - maintain regular routine, no caffeine after 1PM, no exercise 1-2 hours prior to bedtime, keep bedroom dark and cool, no TV or electronics while in bed. Consider melatonin as needed. Consider cognitive behavioral therapy for insomnia (CBT-I). Consider/Continue therapy. Consider/Continue substance cessation therapy as needed - contact office if desiring medication assisted therapy. Manage co-morbid conditions. Continue monitoring symptoms - report persistent or worsening/concern ing symptoms to the office or go to the ER. For mental health CRISIS, please reach out to [phone] (National Suicide and Crisis Lifeline), 911, go to the emergency department, or contact the [facility] Crisis Unit/Team. Follow up as scheduled in 4 weeks or sooner if necessary. Follow up with PCP and/or other specialists as advised. NEXT STEP: Consider increasing olanzapine. Consider increasing fluoxetine. Consider increasing hydroxyzine. Consider increasing atomoxetine. Consider increasing buspirone. Consider other medication adjustments as needed., Learning About Mood Disorders material was published 07/01/2024 Opioid use disorder (ICD-10 - F11.99) 08/22/2024 Mood disorder (ICD-10 - F39) Duration (acute/chronic), stability (controlled/uncon trolled): Chronic, improved while on medications, still room for improvement, see HPI Current medications/effic acy: Somewhat, room for improvement Previous medication trials: Minipress, Depakote (didn't help), Zoloft (caused suicidal ideations), Lamotrigine (reportedly worsened irritability and depression), Quetiapine (worsening nightmares), prazosin (worsening nightmares), aripiprazole (worse nightmares/drug ), trazodone (ineffective), propranolol (ALLERGY) Current/previous therapies: I do group sessions at [facility] in [place] on Tuesdays and , has been participating in this for about 2-3 months Examination as documented - see pertinent aspects of office visit documentation. Differential diagnoses: RECOMMENDATIONS: STOP zolpidem as prescribed to assist with sleep - educated patient/guardian on adverse effects, risks and benefits, as well as alternative treatments TAKE hydroxyzine during the day as discussed to assist with anxiety (due to inefficacy for sleep) - educated patient/guardian on adverse effects, risks and benefits, as well as alternative treatments INCREASE olanzapine as prescribed to assist with mood/stability, take 0.5 tablet twice daily - educated patient/guardian on adverse effects, risks and benefits, as well as alternative treatments Continue/modify other medications as prescribed - educated patient/guardian on adverse effects, risks and benefits, as well as alternative treatments Consume well balanced diet, preferably low in saturated fats (solid at room temperature, such as butter, margarine, Crisco, etc) and low in sodium (<2,000mg per day). Consume plenty of fruits/vegetables , healthy grains/whole grains, unsaturated/healt hy fats (liquid at room temperature, such as olive oil, sunflower seed oil, canola, vegetable, etc.). Exercise regularly - Develop an exercise routine. 30 minutes of moderate exercise (walking at a brisk pace) 5 times per week is recommended. You should work hard enough to cause a sweat but still be able to talk with others while exercising. Exercise improves overall health - improves blood pressure and blood sugar, helps control weight, reduces stress, and improves mood. Practice stress reduction techniques, such as guided imagery, journaling, aromatherapy, acupuncture/acupr essure, deep breathing, etc. Practice healthy sleep hygiene - maintain regular routine, no caffeine after 1PM, no exercise 1-2 hours prior to bedtime, keep bedroom dark and cool, no TV or electronics while in bed. Consider melatonin as needed. Consider cognitive behavioral therapy for insomnia (CBT-I). Consider/Continue therapy. Consider/Continue substance cessation therapy as needed - contact office if desiring medication assisted therapy. Manage co-morbid conditions. Continue monitoring symptoms - report persistent or worsening/concern ing symptoms to the office or go to the ER. For mental health CRISIS, please reach out to [phone] ([employer] Suicide and Crisis Lifeline), 911, go to the emergency department, or contact the [facility] Crisis Unit/Team. Follow up as scheduled in 4 weeks or sooner if necessary. Follow up with PCP and/or other specialists as advised. NEXT STEP: Consider increasing olanzapine. Consider increasing fluoxetine. Consider increasing hydroxyzine. Consider increasing atomoxetine. Consider increasing buspirone. Consider other medication adjustments as needed., Learning About Mood Disorders material was published 07/02/2024 Mood disorder (ICD-10 - F39) Duration (acute/chronic), stability (controlled/uncon trolled): Chronic, improved while on medications, still room for improvement, see HPI Current medications/effic acy: Somewhat, room for improvement Previous medication trials: Minipress, Depakote (didn't help), Zoloft (caused suicidal ideations), Lamotrigine (reportedly worsened irritability and depression), Quetiapine (worsening nightmares), prazosin (worsening nightmares), aripiprazole (worse nightmares/drug ), trazodone (ineffective), propranolol (ALLERGY) Current/previous therapies: I do group sessions at [facility] in [place] on Tuesdays and , has been participating in this for about 2-3 months Examination as documented - see pertinent aspects of office visit documentation. Pertinent diagnostics: NOT DISCUSSED DUE TO TIME CONSTRAINTS - WILL DISCUSS AT FUTURE VISIT Differential diagnoses: RECOMMENDATIONS: START zolpidem as prescribed to assist with sleep - educated patient/guardian on adverse effects, risks and benefits, as well as alternative treatments TAKE hydroxyzine during the day as discussed to assist with anxiety (due to inefficacy for sleep) - educated patient/guardian on adverse effects, risks and benefits, as well as alternative treatments INCREASE olanzapine as prescribed to assist with mood/stability, take 0.5 tablet twice daily - educated patient/guardian on adverse effects, risks and benefits, as well as alternative treatments Continue/modify other medications as prescribed - educated patient/guardian on adverse effects, risks and benefits, as well as alternative treatments Consume well balanced diet, preferably low in saturated fats (solid at room temperature, such as butter, margarine, Crisco, etc) and low in sodium (<2,000mg per day). Consume plenty of fruits/vegetables , healthy grains/whole grains, unsaturated/healt hy fats (liquid at room temperature, such as olive oil, sunflower seed oil, canola, vegetable, etc.). Exercise regularly - Develop an exercise routine. 30 minutes of moderate exercise (walking at a brisk pace) 5 times per week is recommended. You should work hard enough to cause a sweat but still be able to talk with others while exercising. Exercise improves overall health - improves blood pressure and blood sugar, helps control weight, reduces stress, and improves mood. Practice stress reduction techniques, such as guided imagery, journaling, aromatherapy, acupuncture/acupr essure, deep breathing, etc. Practice healthy sleep hygiene - maintain regular routine, no caffeine after 1PM, no exercise 1-2 hours prior to bedtime, keep bedroom dark and cool, no TV or electronics while in bed. Consider melatonin as needed. Consider cognitive behavioral therapy for insomnia (CBT-I). Consider/Continue therapy. Consider/Continue substance cessation therapy as needed - contact office if desiring medication assisted therapy. Manage co-morbid conditions. Continue monitoring symptoms - report persistent or worsening/concern ing symptoms to the office or go to the ER. For mental health CRISIS, please reach out to [phone] (National Suicide and Crisis Lifeline), 911, go to the emergency department, or contact the [facility] Crisis Unit/Team. Follow up as scheduled in 4 weeks or sooner if necessary. Follow up with PCP and/or other specialists as advised. NEXT STEP: Consider increasing olanzapine. Consider increasing fluoxetine. Consider increasing hydroxyzine. Consider increasing atomoxetine. Consider increasing buspirone. Consider other medication adjustments as needed. 07/02/2024 PTSD (post-traumatic stress disorder) (ICD-10 - F43.10) See assessment and plan for mood disorder 05/02/2024 Obesity (BMI 30-39.9) (ICD-10 - E66.9) 07/01/2024 Mood disorder (ICD-10 - F39) 08/22/2024 PTSD (post-traumatic stress disorder) (ICD-10 - F43.10) See assessment and plan for mood disorder, Post-Traumatic Stress Disorder (PTSD): Care Instructions material was published 10/10/2024 PTSD (post-traumatic stress disorder) (ICD-10 - F43.10) See assessment and plan for mood disorder, Post-Traumatic Stress Disorder (PTSD): Care Instructions material was published 11/18/2024 Gastroesophageal reflux disease without esophagitis (ICD-10 - K21.9) 12/14/2023 Nutritional counseling (ICD-10 - Z71.3) 01/24/2024 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) Duration (acute/chronic), stability (controlled/uncon trolled): Chronic, not currently on medication specifically for this, has previously tried prazosin (reportedly worsened nightmares, see below) Current medications/effic acy: No Previous medication trials: Minipress, Depakote (didn't help), Zoloft (caused suicidal ideations), Lamotrigine (reportedly worsened irritability and depression), Quetiapine (worsening nightmares), prazosin (worsening nightmares), aripiprazole (worse nightmares/drug ) Current/previous therapies: I do group sessions at [facility] in [place] on Tuesdays and , has been participating in this for about 2-3 months Examination as documented - see pertinent aspects of office visit documentation. Pertinent diagnostics: NOT DISCUSSED DUE TO TIME CONSTRAINTS - WILL DISCUSS AT FUTURE VISIT Differential diagnoses: PTSD related RECOMMENDATIONS: Continue/modify other medications as prescribed - educated patient/guardian on adverse effects, risks and benefits, as well as alternative treatments Consume well balanced diet, preferably low in saturated fats (solid at room temperature, such as butter, margarine, Crisco, etc) and low in sodium (<2,000mg per day). Consume plenty of fruits/vegetables , healthy grains/whole grains, unsaturated/healt hy fats (liquid at room temperature, such as olive oil, sunflower seed oil, canola, vegetable, etc.). Exercise regularly - Develop an exercise routine. 30 minutes of moderate exercise (walking at a brisk pace) 5 times per week is recommended. You should work hard enough to cause a sweat but still be able to talk with others while exercising. Exercise improves overall health - improves blood pressure and blood sugar, helps control weight, reduces stress, and improves mood. Practice stress reduction techniques, such as guided imagery, journaling, aromatherapy, acupuncture/acupr essure, deep breathing, etc. Practice healthy sleep hygiene - maintain regular routine, no caffeine after 1PM, no exercise 1-2 hours prior to bedtime, keep bedroom dark and cool, no TV or electronics while in bed. Consider melatonin as needed. Consider cognitive behavioral therapy for insomnia (CBT-I). Consider/Continue therapy. Consider/Continue substance cessation therapy as needed - contact office if desiring medication assisted therapy. Manage co-morbid conditions. Continue monitoring symptoms - report persistent or worsening/concern ing symptoms to the office or go to the ER. For mental health CRISIS, please reach out to [phone] (National Suicide and Crisis Lifeline), 911, go to the emergency department, or contact the [facility] Crisis Unit/Team. Follow up as scheduled or sooner if necessary. Follow up with PCP and/or other specialists as advised. 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) See assessment and plan for mood disorder 03/20/2024 Nicotine dependence, unspecified, uncomplicated (ICD-10 - F17.200) 04/10/2024 PTSD (post-traumatic stress disorder) (ICD-10 - F43.10) See assessment and plan for mood disorder 04/23/2024 Nutritional counseling (ICD-10 - Z71.3) 05/02/2024 Nutritional counseling (ICD-10 - Z71.3) 07/01/2024 Hematemesis (ICD-10 - K92.0) 04/10/2024 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) See assessment and plan for mood disorder 04/23/2024 Nicotine dependence, unspecified, uncomplicated (ICD-10 - F17.200) 03/06/2024 ADHD (attention deficit hyperactivity disorder) (ICD-10 - F90.9) Duration (acute/chronic), stability (controlled/uncon trolled): Previously diagnosed in childhood, previously treated with Adderall, not currently taking medications for this, not improved with improved mood symptoms, see HPI Current medications/effic acy: N/A Previous medication trials: Adderall Current/previous therapies: I do group sessions at [facility] on Tuesdays and , has been participating in this for about 2-3 months Examination as documented - see pertinent aspects of office visit documentation. Pertinent diagnostics: NOT DISCUSSED DUE TO TIME CONSTRAINTS - WILL DISCUSS AT FUTURE VISIT Differential diagnoses: RECOMMENDATIONS: START atomoxetine as prescribed to assist with ADHD - educated patient/guardian on adverse effects, risks and benefits, as well as alternative treatments Continue/modify other medications as prescribed - educated patient/guardian on adverse effects, risks and benefits, as well as alternative treatments Consume well balanced diet, preferably low in saturated fats (solid at room temperature, such as butter, margarine, Crisco, etc) and low in sodium (<2,000mg per day). Consume plenty of fruits/vegetables , healthy grains/whole grains, unsaturated/healt hy fats (liquid at room temperature, such as olive oil, sunflower seed oil, canola, vegetable, etc.). Exercise regularly - Develop an exercise routine. 30 minutes of moderate exercise (walking at a brisk pace) 5 times per week is recommended. You should work hard enough to cause a sweat but still be able to talk with others while exercising. Exercise improves overall health - improves blood pressure and blood sugar, helps control weight, reduces stress, and improves mood. Practice stress reduction techniques, such as guided imagery, journaling, aromatherapy, acupuncture/acupr essure, deep breathing, etc. Practice healthy sleep hygiene - maintain regular routine, no caffeine after 1PM, no exercise 1-2 hours prior to bedtime, keep bedroom dark and cool, no TV or electronics while in bed. Consider melatonin as needed. Consider cognitive behavioral therapy for insomnia (CBT-I). Consider/Continue therapy. Consider/Continue substance cessation therapy as needed - contact office if desiring medication assisted therapy. Manage co-morbid conditions. Continue monitoring symptoms - report persistent or worsening/concern ing symptoms to the office or go to the ER. For mental health CRISIS, please reach out to [phone] (National Suicide and Crisis Lifeline), 911, go to the emergency department, or contact the [facility] Crisis Unit/Team. Follow up as scheduled in 2 weeks or sooner if necessary. Follow up with PCP and/or other specialists as advised. NEXT STEP: Consider increasing atomoxetine pending response/tolerabi lity. Consider trial of different nonstimulant. Consider trial of stimulant medication as needed. 02/22/2024 Nicotine dependence, unspecified, uncomplicated (ICD-10 - F17.200) 01/24/2024 Nicotine dependence, unspecified, uncomplicated (ICD-10 - F17.200) Duration (acute/chronic), stability (controlled/uncon trolled): Positive tobacco use screening, unable to take history on this due to time constraints, will assess at future visit Current medications/effic acy: N/A Previous medication trials: N/A RECOMMENDATIONS: Consider substance cessation therapy as needed - contact office if desiring medication assisted therapy. Manage co-morbid conditions. Continue monitoring symptoms - report persistent or worsening/concern ing symptoms to the office or go to the ER. For mental health CRISIS, please reach out to [phone] (National Suicide and Crisis Lifeline), 911, go to the emergency department, or contact the [facility] Crisis Unit/Team. Follow up as scheduled or sooner if necessary. Follow up with PCP and/or other specialists as advised. NEXT STEP: Consider MAT as needed 12/14/2023 Nicotine dependence, unspecified, uncomplicated (ICD-10 - F17.200) 10/10/2024 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) See assessment and plan for mood disorder 11/18/2024 Opioid use disorder (ICD-10 - F11.99) 08/22/2024 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) See assessment and plan for mood disorder 07/02/2024 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) See assessment and plan for mood disorder 08/22/2024 ADHD (attention deficit hyperactivity disorder) (ICD-10 - F90.9) Duration (acute/chronic), stability (controlled/uncon trolled): Previously diagnosed in childhood, previously treated with Adderall - recently started on atomoxetine, still room for improvement, see HPI Current medications/effic acy: Somewhat, room for improvement Previous medication trials: Adderall, atomoxetine Current/previous therapies: I do group sessions at [facility] in [place] on Tuesdays and , has been participating in this for about 2-3 months Examination as documented - see pertinent aspects of office visit documentation. Pertinent diagnostics: NOT DISCUSSED DUE TO TIME CONSTRAINTS - WILL DISCUSS AT FUTURE VISIT Differential diagnoses: RECOMMENDATIONS: CONTINUE atomoxetine as prescribed to assist with ADHD - educated patient/guardian on adverse effects, risks and benefits, as well as alternative treatments Continue/modify other medications as prescribed - educated patient/guardian on adverse effects, risks and benefits, as well as alternative treatments Consume well balanced diet, preferably low in saturated fats (solid at room temperature, such as butter, margarine, Crisco, etc) and low in sodium (<2,000mg per day). Consume plenty of fruits/vegetables , healthy grains/whole grains, unsaturated/healt hy fats (liquid at room temperature, such as olive oil, sunflower seed oil, canola, vegetable, etc.). Exercise regularly - Develop an exercise routine. 30 minutes of moderate exercise (walking at a brisk pace) 5 times per week is recommended. You should work hard enough to cause a sweat but still be able to talk with others while exercising. Exercise improves overall health - improves blood pressure and blood sugar, helps control weight, reduces stress, and improves mood. Practice stress reduction techniques, such as guided imagery, journaling, aromatherapy, acupuncture/acupr essure, deep breathing, etc. Practice healthy sleep hygiene - maintain regular routine, no caffeine after 1PM, no exercise 1-2 hours prior to bedtime, keep bedroom dark and cool, no TV or electronics while in bed. Consider melatonin as needed. Consider cognitive behavioral therapy for insomnia (CBT-I). Consider/Continue therapy. Consider/Continue substance cessation therapy as needed - contact office if desiring medication assisted therapy. Manage co-morbid conditions. Continue monitoring symptoms - report persistent or worsening/concern ing symptoms to the office or go to the ER. For mental health CRISIS, please reach out to [phone] (National Suicide and Crisis Lifeline), 911, go to the emergency department, or contact the [facility] Crisis Unit/Team. Follow up as scheduled in 4 weeks or sooner if necessary. Follow up with PCP and/or other specialists as advised. NEXT STEP: Consider increasing atomoxetine pending response/tolerabi lity. Consider trial of different nonstimulant. Consider trial of stimulant medication as needed., Attention Deficit Hyperactivity Disorder (ADHD) in Adults: Care Instructions material was published 07/01/2024 Hematochezia (ICD-10 - K92.1) 07/02/2024 ADHD (attention deficit hyperactivity disorder) (ICD-10 - F90.9) Duration (acute/chronic), stability (controlled/uncon trolled): Previously diagnosed in childhood, previously treated with Adderall - recently started on atomoxetine, still room for improvement, see HPI Current medications/effic acy: Somewhat, room for improvement Previous medication trials: Adderall, atomoxetine Current/previous therapies: I do group sessions at [facility] in [place] on Tuesdays and , has been participating in this for about 2-3 months Examination as documented - see pertinent aspects of office visit documentation. Pertinent diagnostics: NOT DISCUSSED DUE TO TIME CONSTRAINTS - WILL DISCUSS AT FUTURE VISIT Differential diagnoses: RECOMMENDATIONS: CONTINUE atomoxetine as prescribed to assist with ADHD - educated patient/guardian on adverse effects, risks and benefits, as well as alternative treatments Continue/modify other medications as prescribed - educated patient/guardian on adverse effects, risks and benefits, as well as alternative treatments Consume well balanced diet, preferably low in saturated fats (solid at room temperature, such as butter, margarine, Crisco, etc) and low in sodium (<2,000mg per day). Consume plenty of fruits/vegetables , healthy grains/whole grains, unsaturated/healt hy fats (liquid at room temperature, such as olive oil, sunflower seed oil, canola, vegetable, etc.). Exercise regularly - Develop an exercise routine. 30 minutes of moderate exercise (walking at a brisk pace) 5 times per week is recommended. You should work hard enough to cause a sweat but still be able to talk with others while exercising. Exercise improves overall health - improves blood pressure and blood sugar, helps control weight, reduces stress, and improves mood. Practice stress reduction techniques, such as guided imagery, journaling, aromatherapy, acupuncture/acupr essure, deep breathing, etc. Practice healthy sleep hygiene - maintain regular routine, no caffeine after 1PM, no exercise 1-2 hours prior to bedtime, keep bedroom dark and cool, no TV or electronics while in bed. Consider melatonin as needed. Consider cognitive behavioral therapy for insomnia (CBT-I). Consider/Continue therapy. Consider/Continue substance cessation therapy as needed - contact office if desiring medication assisted therapy. Manage co-morbid conditions. Continue monitoring symptoms - report persistent or worsening/concern ing symptoms to the office or go to the ER. For mental health CRISIS, please reach out to [phone] ([place] Suicide and Crisis Lif[facility]), 911, go to the emergency department, or contact the [facility] Crisis Unit/Team. Follow up as scheduled in 4 weeks or sooner if necessary. Follow up with PCP and/or other specialists as advised. NEXT STEP: Consider increasing atomoxetine pending response/tolerabi lity. Consider trial of different nonstimulant. Consider trial of stimulant medication as needed. 10/10/2024 ADHD (attention deficit hyperactivity disorder) (ICD-10 - F90.9) Duration (acute/chronic), stability (controlled/uncon trolled): Previously diagnosed in childhood, previously treated with Adderall - recently started on atomoxetine, still room for improvement, see HPI Current medications/effic acy: Somewhat, room for improvement Previous medication trials: Adderall, atomoxetine Current/previous therapies: I do group sessions at [facility] in [place] on Tuesdays and , has been participating in this for about 2-3 months Examination as documented - see pertinent aspects of office visit documentation. Pertinent diagnostics: NOT DISCUSSED DUE TO TIME CONSTRAINTS - WILL DISCUSS AT FUTURE VISIT Differential diagnoses: RECOMMENDATIONS: CONTINUE atomoxetine as prescribed to assist with ADHD - educated patient/guardian on adverse effects, risks and benefits, as well as alternative treatments Continue/modify other medications as prescribed - educated patient/guardian on adverse effects, risks and benefits, as well as alternative treatments Consume well balanced diet, preferably low in saturated fats (solid at room temperature, such as butter, margarine, Crisco, etc) and low in sodium (<2,000mg per day). Consume plenty of fruits/vegetables , healthy grains/whole grains, unsaturated/healt hy fats (liquid at room temperature, such as olive oil, sunflower seed oil, canola, vegetable, etc.). Exercise regularly - Develop an exercise routine. 30 minutes of moderate exercise (walking at a brisk pace) 5 times per week is recommended. You should work hard enough to cause a sweat but still be able to talk with others while exercising. Exercise improves overall health - improves blood pressure and blood sugar, helps control weight, reduces stress, and improves mood. Practice stress reduction techniques, such as guided imagery, journaling, aromatherapy, acupuncture/acupr essure, deep breathing, etc. Practice healthy sleep hygiene - maintain regular routine, no caffeine after 1PM, no exercise 1-2 hours prior to bedtime, keep bedroom dark and cool, no TV or electronics while in bed. Consider melatonin as needed. Consider cognitive behavioral therapy for insomnia (CBT-I). Consider/Continue therapy. Consider/Continue substance cessation therapy as needed - contact office if desiring medication assisted therapy. Manage co-morbid conditions. Continue monitoring symptoms - report persistent or worsening/concern ing symptoms to the office or go to the ER. For mental health CRISIS, please reach out to [phone] ([place] [facility]icide [facility] Crisis [facility]), 911, go to the emergency department, or contact the [facility] Crisis Unit/Team. Follow up as scheduled in 4 weeks or sooner if necessary. Follow up with PCP and/or other specialists as advised. NEXT STEP: Consider increasing atomoxetine pending response/tolerabi lity. Consider trial of different nonstimulant. Consider trial of stimulant medication as needed., Attention Deficit Hyperactivity Disorder (ADHD) in Adults: Care Instructions material was published 11/18/2024 Lipid screening (ICD-10 - Z13.220) 01/24/2024 Opioid use disorder (ICD-10 - F11.99) Duration (acute/chronic), stability (controlled/uncon trolled): Previous problem, Fentanyl (started in 2021, stopped in 09/2022 prior to going to rehab, nothing since), heroin (same as fentanyl) - following up with MAT clinic Current medications/effic acy: Yes Previous medication trials: Sublocade injection Current/previous therapies: I do group sessions at [facility] in [place] on Tuesdays and , has been participating in this for about 2-3 months Examination as documented - see pertinent aspects of office visit documentation. Pertinent diagnostics: NOT DISCUSSED DUE TO TIME CONSTRAINTS - WILL DISCUSS AT FUTURE VISIT Differential diagnoses: RECOMMENDATIONS: Consider/Continue therapy. Continue substance cessation therapy as prescribed by MAT clinic/as needed - contact office if desiring medication assisted therapy. Manage co-morbid conditions. Continue monitoring symptoms - report persistent or worsening/concern ing symptoms to the office or go to the ER. For mental health CRISIS, please reach out to [phone] ([place] Suicide and Crisis Lif[facility]), 911, go to the emergency department, or contact the [facility] Crisis Unit/Team. Follow up as scheduled or sooner if necessary. Follow up with PCP and/or other specialists as advised. NEXT STEP: 03/06/2024 Nicotine dependence, unspecified, uncomplicated (ICD-10 - F17.200) Duration (acute/chronic), stability (controlled/uncon trolled): Positive tobacco use screening, unable to take history on this due to time constraints, will assess at future visit Current medications/effic acy: N/A Previous medication trials: N/A RECOMMENDATIONS: Consider substance cessation therapy as needed - contact office if desiring medication assisted therapy. Manage co-morbid conditions. Continue monitoring symptoms - report persistent or worsening/concern ing symptoms to the office or go to the ER. For mental health CRISIS, please reach out to [phone] ([place] [facility]icide [facility] Crisis [facility]), 911, go to the emergency department, or contact the [facility] Crisis Unit/Team. Follow up as scheduled or sooner if necessary. Follow up with PCP and/or other specialists as advised. NEXT STEP: Consider MAT as needed 04/10/2024 ADHD (attention deficit hyperactivity disorder) (ICD-10 - F90.9) Duration (acute/chronic), stability (controlled/uncon trolled): Previously diagnosed in childhood, previously treated with Adderall - recently started on atomoxetine, still room for improvement, see HPI Current medications/effic acy: Somewhat, room for improvement Previous medication trials: Adderall, atomoxetine Current/previous therapies: I do group sessions at [facility] in [place] on Tuesdays and , has been participating in this for about 2-3 months Examination as documented - see pertinent aspects of office visit documentation. Pertinent diagnostics: NOT DISCUSSED DUE TO TIME CONSTRAINTS - WILL DISCUSS AT FUTURE VISIT Differential diagnoses: RECOMMENDATIONS: INCREASE atomoxetine as prescribed to assist with ADHD - educated patient/guardian on adverse effects, risks and benefits, as well as alternative treatments Continue/modify other medications as prescribed - educated patient/guardian on adverse effects, risks and benefits, as well as alternative treatments Consume well balanced diet, preferably low in saturated fats (solid at room temperature, such as butter, margarine, Crisco, etc) and low in sodium (<2,000mg per day). Consume plenty of fruits/vegetables , healthy grains/whole grains, unsaturated/healt hy fats (liquid at room temperature, such as olive oil, sunflower seed oil, canola, vegetable, etc.). Exercise regularly - Develop an exercise routine. 30 minutes of moderate exercise (walking at a brisk pace) 5 times per week is recommended. You should work hard enough to cause a sweat but still be able to talk with others while exercising. Exercise improves overall health - improves blood pressure and blood sugar, helps control weight, reduces stress, and improves mood. Practice stress reduction techniques, such as guided imagery, journaling, aromatherapy, acupuncture/acupr essure, deep breathing, etc. Practice healthy sleep hygiene - maintain regular routine, no caffeine after 1PM, no exercise 1-2 hours prior to bedtime, keep bedroom dark and cool, no TV or electronics while in bed. Consider melatonin as needed. Consider cognitive behavioral therapy for insomnia (CBT-I). Consider/Continue therapy. Consider/Continue substance cessation therapy as needed - contact office if desiring medication assisted therapy. Manage co-morbid conditions. Continue monitoring symptoms - report persistent or worsening/concern ing symptoms to the office or go to the ER. For mental health CRISIS, please reach out to [phone] ([facility] Suicide and Crisis [facility]), 911, go to the emergency department, or contact the [facility] Crisis Unit/Team. Follow up as scheduled in 4 weeks or sooner if necessary. Follow up with PCP and/or other specialists as advised. NEXT STEP: Consider increasing atomoxetine pending response/tolerabi lity. Consider trial of different nonstimulant. Consider trial of stimulant medication as needed. 05/02/2024 Nicotine dependence, unspecified, uncomplicated (ICD-10 - F17.200) 04/10/2024 Nicotine dependence, unspecified, uncomplicated (ICD-10 - F17.200) Duration (acute/chronic), stability (controlled/uncon trolled): Positive tobacco use screening, unable to take history on this due to time constraints, will assess at future visit Current medications/effic acy: N/A Previous medication trials: N/A RECOMMENDATIONS: Consider substance cessation therapy as needed - contact office if desiring medication assisted therapy. Manage co-morbid conditions. Continue monitoring symptoms - report persistent or worsening/concern ing symptoms to the office or go to the ER. For mental health CRISIS, please reach out to [phone] ([facility] Suicide and Crisis [facility]), 911, go to the emergency department, or contact the [facility] Crisis Unit/Team. Follow up as scheduled or sooner if necessary. Follow up with PCP and/or other specialists as advised. NEXT STEP: Consider MAT as needed 03/06/2024 Opioid use disorder (ICD-10 - F11.99) Duration (acute/chronic), stability (controlled/uncon trolled): Previous problem, Fentanyl (started in 2021, stopped in 09/2022 prior to going to rehab, nothing since), heroin (same as fentanyl) - following up with MAT clinic Current medications/effic acy: Yes Previous medication trials: Sublocade injection Current/previous therapies: I do group sessions at [facility] in [place] on Tuesdays and , has been participating in this for about 2-3 months Examination as documented - see pertinent aspects of office visit documentation. Pertinent diagnostics: NOT DISCUSSED DUE TO TIME CONSTRAINTS - WILL DISCUSS AT FUTURE VISIT Differential diagnoses: RECOMMENDATIONS: Consider/Continue therapy. Continue substance cessation therapy as prescribed by MAT clinic/as needed - contact office if desiring medication assisted therapy. Manage co-morbid conditions. Continue monitoring symptoms - report persistent or worsening/concern ing symptoms to the office or go to the ER. For mental health CRISIS, please reach out to [phone] ([place] [facility]), 911, go to the emergency department, or contact the [facility] Crisis Unit/Team. Follow up as scheduled or sooner if necessary. Follow up with PCP and/or other specialists as advised. NEXT STEP: 11/18/2024 Screening for diabetes mellitus (ICD-10 - Z13.1) 10/10/2024 Nicotine dependence, unspecified, uncomplicated (ICD-10 - F17.200) Duration (acute/chronic), stability (controlled/uncon trolled): Positive tobacco use screening, unable to take history on this due to time constraints, will assess at future visit Current medications/effic acy: N/A Previous medication trials: N/A RECOMMENDATIONS: Consider substance cessation therapy as needed - contact office if desiring medication assisted therapy. Manage co-morbid conditions. Continue monitoring symptoms - report persistent or worsening/concern ing symptoms to the office or go to the ER. For mental health CRISIS, please reach out to [phone] ([facility] Suicide [facility] Crisis [facility]), 911, go to the emergency department, or contact the [facility] Crisis Unit/Team. Follow up as scheduled or sooner if necessary. Follow up with PCP and/or other specialists as advised. NEXT STEP: Consider MAT as needed, Quitting Tobacco: Care Instructions material was published 08/22/2024 Nicotine dependence, unspecified, uncomplicated (ICD-10 - F17.200) Duration (acute/chronic), stability (controlled/uncon trolled): Positive tobacco use screening, unable to take history on this due to time constraints, will assess at future visit Current medications/effic acy: N/A Previous medication trials: N/A RECOMMENDATIONS: Consider substance cessation therapy as needed - contact office if desiring medication assisted therapy. Manage co-morbid conditions. Continue monitoring symptoms - report persistent or worsening/concern ing symptoms to the office or go to the ER. For mental health CRISIS, please reach out to [phone] ([facility] Suicide [facility] Crisis [facility]), 911, go to the emergency department, or contact the [facility] Crisis Unit/Team. Follow up as scheduled or sooner if necessary. Follow up with PCP and/or other specialists as advised. NEXT STEP: Consider MAT as needed, Quitting Tobacco: Care Instructions material was published 07/02/2024 Nicotine dependence, unspecified, uncomplicated (ICD-10 - F17.200) Duration (acute/chronic), stability (controlled/uncon trolled): Positive tobacco use screening, unable to take history on this due to time constraints, will assess at future visit Current medications/effic acy: N/A Previous medication trials: N/A RECOMMENDATIONS: Consider substance cessation therapy as needed - contact office if desiring medication assisted therapy. Manage co-morbid conditions. Continue monitoring symptoms - report persistent or worsening/concern ing symptoms to the office or go to the ER. For mental health CRISIS, please reach out to [phone] (National Suicide and Crisis Lifeline), 911, go to the emergency department, or contact the [facility] Crisis Unit/Team. Follow up as scheduled or sooner if necessary. Follow up with PCP and/or other specialists as advised. NEXT STEP: Consider MAT as needed 08/22/2024 Opioid use disorder (ICD-10 - F11.99) Duration (acute/chronic), stability (controlled/uncon trolled): Previous problem, Fentanyl (started in 2021, stopped in 09/2022 prior to going to rehab, nothing since), heroin (same as fentanyl) - following up with MAT clinic Current medications/effic acy: Yes Previous medication trials: Sublocade injection Current/previous therapies: I do group sessions at [facility] on Tuesdays and , has been participating in this for about 2-3 months Examination as documented - see pertinent aspects of office visit documentation. Pertinent diagnostics: NOT DISCUSSED DUE TO TIME CONSTRAINTS - WILL DISCUSS AT FUTURE VISIT Differential diagnoses: RECOMMENDATIONS: Consider/Continue therapy. Continue substance cessation therapy as prescribed by MAT clinic/as needed - contact office if desiring medication assisted therapy. Manage co-morbid conditions. Continue monitoring symptoms - report persistent or worsening/concern ing symptoms to the office or go to the ER. For mental health CRISIS, please reach out to [phone] (National Suicide and Crisis Lifeline), 911, go to the emergency department, or contact the [facility] Crisis Unit/Team. Follow up as scheduled or sooner if necessary. Follow up with PCP and/or other specialists as advised. NEXT STEP: 07/02/2024 Opioid use disorder (ICD-10 - F11.99) Duration (acute/chronic), stability (controlled/uncon trolled): Previous problem, Fentanyl (started in 2021, stopped in 09/2022 prior to going to rehab, nothing since), heroin (same as fentanyl) - following up with MAT clinic Current medications/effic acy: Yes Previous medication trials: Sublocade injection Current/previous therapies: I do group sessions at [facility] on Tuesdays and , has been participating in this for about 2-3 months Examination as documented - see pertinent aspects of office visit documentation. Pertinent diagnostics: NOT DISCUSSED DUE TO TIME CONSTRAINTS - WILL DISCUSS AT FUTURE VISIT Differential diagnoses: RECOMMENDATIONS: Consider/Continue therapy. Continue substance cessation therapy as prescribed by MAT clinic/as needed - contact office if desiring medication assisted therapy. Manage co-morbid conditions. Continue monitoring symptoms - report persistent or worsening/concern ing symptoms to the office or go to the ER. For mental health CRISIS, please reach out to [phone] (National Suicide and Crisis Lifeline), 911, go to the emergency department, or contact the [facility] Crisis Unit/Team. Follow up as scheduled or sooner if necessary. Follow up with PCP and/or other specialists as advised. NEXT STEP: 10/10/2024 Insomnia (ICD-10 - G47.00) Insomnia: Care Instructions material was published, [facility] material was published 08/22/2024 Insomnia (ICD-10 - G47.00) Insomnia: Care Instructions material was published, [facility] material was published 11/18/2024 Travel advice encounter (ICD-10 - Z71.89) NEEDS VACCINES FOR HEPATITIS A, YELLOW FEVER, TYPHOID, MMR, MENINGITIS. ALSO NEED MALARIA PROPHYLAXIS. 04/10/2024 Opioid use disorder (ICD-10 - F11.99) Duration (acute/chronic), stability (controlled/uncon trolled): Previous problem, Fentanyl (started in 2021, stopped in 09/2022 prior to going to rehab, nothing since), heroin (same as fentanyl) - following up with MAT clinic Current medications/effic acy: Yes Previous medication trials: Sublocade injection Current/previous therapies: I do group sessions at [facility] in [place] on Tuesdays and , has been participating in this for about 2-3 months Examination as documented - see pertinent aspects of office visit documentation. Pertinent diagnostics: NOT DISCUSSED DUE TO TIME CONSTRAINTS - WILL DISCUSS AT FUTURE VISIT Differential diagnoses: RECOMMENDATIONS: Consider/Continue therapy. Continue substance cessation therapy as prescribed by MAT clinic/as needed - contact office if desiring medication assisted therapy. Manage co-morbid conditions. Continue monitoring symptoms - report persistent or worsening/concern ing symptoms to the office or go to the ER. For mental health CRISIS, please reach out to [phone] ([employer] Suicide and Crisis Lifeline), 911, go to the emergency department, or contact the [facility] Crisis Unit/Team. Follow up as scheduled or sooner if necessary. Follow up with PCP and/or other specialists as advised. NEXT STEP: 10/10/2024 Opioid use disorder (ICD-10 - F11.99) Duration (acute/chronic), stability (controlled/uncon trolled): Previous problem, Fentanyl (started in 2021, stopped in 09/2022 prior to going to rehab, nothing since), heroin (same as fentanyl) - following up with MAT clinic Current medications/effic acy: Yes Previous medication trials: Sublocade injection Current/previous therapies: I do group sessions at [facility] in [place] on Tuesdays and , has been participating in this for about 2-3 months Examination as documented - see pertinent aspects of office visit documentation. Pertinent diagnostics: NOT DISCUSSED DUE TO TIME CONSTRAINTS - WILL DISCUSS AT FUTURE VISIT Differential diagnoses: RECOMMENDATIONS: Consider/Continue therapy. Continue substance cessation therapy as prescribed by MAT clinic/as needed - contact office if desiring medication assisted therapy. Manage co-morbid conditions. Continue monitoring symptoms - report persistent or worsening/concern ing symptoms to the office or go to the ER. For mental health CRISIS, please reach out to [phone] ([employer] [facility]icide [facility] Crisis [facility]), 911, go to the emergency department, or contact the [facility] Crisis Unit/Team. Follow up as scheduled or sooner if necessary. Follow up with PCP and/or other specialists as advised. NEXT STEP: 01/18/2024 Other Patient agrees to take medication as prescribed. Discussed medication side effects, adverse effects, risks, benefits, as well as interactions. Encouraged non-use of opioids. Encouraged participation in recovery groups. Patient may contact office with questions or concerns. 02/15/2024 Other Patient agrees to take medication as prescribed. Discussed medication side effects, adverse effects, risks, benefits, as well as interactions. Encouraged non-use of opioids and other illicit substances. Has naloxone. Discontinuing buprenorphine increases the risk of overdose upon return to illicit opioid use. Use of alcohol or benzodiazepines with buprenorphine increases the risk of overdose and . Education provided about safe storage of medications. Encouraged participation in recovery groups/counseling services. Contact office with questions or concerns. 02/22/2024 Other Potential side effects of buprenorphine discussed, as well as taking buprenorphine as prescribed. Dangers of using other controlled substances (prescribed or illegal/including benzodiazepines) with buprenorphine discussed. Patient understands taking other narcotics with buprenorphine could lead to respiratory distress and even . Patient understands that ALL treating providers/physici ans should be informed of buprenorphine use as part of a Medication Assisted Treatment program 03/26/2024 Other Follow up with primary care for GI issues. Patient agrees to take medication as prescribed. Discussed medication side effects, adverse effects, risks, benefits, as well as interactions. Encouraged non-use of opioids and other illicit substances. Has naloxone. Discontinuing buprenorphine increases the risk of overdose upon return to illicit opioid use. Use of alcohol or benzodiazepines with buprenorphine increases the risk of overdose and . Education provided about safe storage of medications. Encouraged participation in recovery groups/counseling services. Contact office with questions or concerns. Agrees to return to office in 28 days for next injection. 04/23/2024 Other Potential side effects of buprenorphine discussed, as well as taking buprenorphine as prescribed. Dangers of using other controlled substances (prescribed or illegal/including benzodiazepines) with buprenorphine discussed. Patient understands taking other narcotics with buprenorphine could lead to respiratory distress and even . Patient understands that ALL treating providers/physici ans should be informed of buprenorphine use as part of a Medication Assisted Treatment program 07/01/2024 Other [place] PDMP W/O ISSUES 08/22/2024 Other Buspirone material was published, Fluoxetine material was published, Olanzapine material was published, Hydroxyzine material was published, Atomoxetine material was published, Doxepin (Insomnia) material was published Plan Of Treatment No Information Insurance Providers Payer Name Payer Address Payer Phone Subscriber Number Group Number Insured Name Patient Relationship to Insured Coverage Start Date Coverage End Date [facility] [address] [place] [address] [phone] [id number] Luis Alfredo Mendes Self - patient is the insured 5 [facility] [address] [place] [address] [id number] Luis Alfredo Mendes Self - patient is the insured 5 Medications Administered Medication Instructions Date of Administration Dosage Notes Sublocade 01/18/2024 300 mg Sublocade 02/22/2024 300 mg Loretta RN, Kim Richardson 02/22/2024 01:47:48 PM GENETICS PHYSICIAN >Pt tolerated well with minimal discomfort. Sublocade 03/26/2024 300 mg Sublocade 04/23/2024 300 mg Danette RN, Awa pabon 04/23/2024 10:38:33 AM GENETICS PHYSICIAN >pt tolerated well. Vivitrol 12/14/2023 380 mg Manufact by Flo kiran pt belen well. Medical (General) History Medical History History ICD Code Substance use disorder adhd Surgical History Surgery Date(Month/Year) Hospitalization History Reason Date(Month/Year) Detox x4 Medication interaction 2024
== END 2024-12-09 14:05 | disposition short-term general hospital (02) ==
PROVIDERS: Emergency Provider Nurse Practitioner Family; PCP Internal Medicine
DX: K08.89 Other specified disorders of teeth and supporting structures (principal); R06.02 Shortness of breath; R07.89 Other chest pain; R22.43 Localized swelling, mass and lump, lower limb, bilateral; F17.290 Nicotine dependence, other tobacco product, uncomplicated; F41.9 Anxiety disorder, unspecified; F32.A Depression, unspecified
CPT/HCPCS: 93005; 99213; G0463

== ENCOUNTER 2024-12-09 14:28 | Emergency (ER) | payer BC, SELFPAY ==
[2024-12-09 15:32] VITALS: BP 147/76; PULSE 68; RESP 14; TEMP 36.1; O2SAT 99
--- NOTE | 2024-12-09 19:22 | PC.NURSE ---
called from waiting room, no answer
--- NOTE | 2024-12-09 19:48 | PC.NURSE ---
called from waiting room, no answer
== END 2024-12-09 19:48 | disposition left against medical advice (07) ==
LOC: ANHED 21:17
PROVIDERS: PCP Internal Medicine
DX: K08.89 Other specified disorders of teeth and supporting structures (principal)
CPT/HCPCS: 99199